=== PATIENT | male | born 1955 | race Caucasian/White ===

== ENCOUNTER 2016-06-03 11:49 | Observation (INO) | payer OTHER ==
--- NOTE | 2016-06-03 12:12 | UCPHY ---
H & P Patient Type: New Chief Complaint Nursing Narrative: states he had cold symptoms for 2 weeks and now sob x 2 days. pt very pale, skin w/d. Time Seen by Provider: 06/03/16 12:04 HPI/ROS: CHIEF COMPLAINT: Fatigue HISTORY OF PRESENT ILLNESS: The patient is a 61-year-old man who comes to the emergency department complaining of easy fatigability and shortness of breath with exertion. He is not short of breath at rest. He has not had a fever or recent illness. Has had incidents in the past of anemia for unexplained reasons. He states that about 10 years ago this happened and he was anemic and had upper and lower endoscopy and no source found. He improved with iron supplementation. It happened again a few years later and was confirmed by lab results but no advanced diagnostics. This again improved with iron supplementation. The patient began feeling this way about 3 days ago and has been taking iron since then. He has not had any blood or dark stool. No vomiting. No chest pain or palpitations . He states that his only past medical history of hypothyroid and he takes Synthroid. His dose has not changed. REVIEW OF SYSTEMS: Constitutional: denies: chills, fever, recent illness, recent injury EENTM: denies: blurred vision, double vision, nose congestion Respiratory: denies: cough, shortness of breath Cardiac: denies: chest pain, irregular heart rate, lightheadedness, palpitations Gastrointestinal/Abdominal: denies: abdominal pain, diarrhea, nausea, vomiting, blood streaked stools Genitourinary: denies: dysuria, frequency, hematuria, pain Musculoskeletal: denies: joint pain, muscle pain Skin: See HPI Neurological: denies: headache, numbness, paresthesia, tingling, dizziness, weakness Hematologic/Lymphatic: denies: blood clots, easy bleeding, easy bruising Immunologic/allergic: denies: HIV/AIDS, transplant EXAM: GENERAL: Well-appearing, well-nourished and in no acute distress. HEAD: Atraumatic, normocephalic. EYES: Pupils equal round and reactive to light, extraocular movements intact, sclera anicteric, conjunctiva are normal. ENT: Large nontender goiter equal bilaterally. TMs normal, nares patent, oropharynx clear without exudates. Moist mucous membranes. NECK: Normal range of motion, supple without lymphadenopathy or JVD. LUNGS: Breath sounds clear to auscultation bilaterally and equal. No wheezes rales or rhonchi. HEART: Regular rate and rhythm without murmurs, rubs or gallops. ABDOMEN: Soft, nontender, normoactive bowel sounds. No guarding, no rebound. No masses appreciated. BACK: No CVA tenderness, no spinal tenderness, step-offs or deformities EXTREMITIES: Normal range of motion, no pitting or edema. No clubbing or cyanosis. NEUROLOGICAL: Cranial nerves II through XII grossly intact. Normal speech, normal gait. 5/5 strength, normal movement in all extremities, normal sensation PSYCH: Normal mood, normal affect. SKIN: Pale Source: Patient Exam Limitations: No limitations - Medical/Surgical History Hx Asthma: No Hx Chronic Respiratory Disease: No Hx Diabetes: No Hx Cardiac Disease: No Hx Renal Disease: No Hx Cirrhosis: No Hx Alcoholism: No Other PMH: hypothyroid, anemia - Family History Significant Family History: No pertinent family hx - Social History Smoking Status: Former smoker Alcohol Use: Sober Drug Use: None Constitutional: Initial Vital Signs Temperature (C) 36.7 C 06/03/16 12:03 Heart Rate 95 06/03/16 12:03 Respiratory Rate 18 06/03/16 12:03 Blood Pressure 143/64 H 06/03/16 12:03 O2 Sat (%) 100 06/03/16 12:03 O2 Delivery Mode Room Air Allergies/Adverse Reactions: Penicillins Allergy (Verified 06/03/16 12:02) Home Medications: Medication Instructions Recorded Levothyroxine 06/03/16 Medical Decision Making - Diagnostics EKG Interpretation: An EKG obtained and was read and documented in trace view. Please see trace view for full reading and report. Sinus rhythm, no acute ischemic changes Imaging: X-ray: chest x-ray was obtained. I viewed the images myself on the PACS system. My interpretation of the images is: Negative for airway disease, displaced trachea. The radiologist interpretation is enlarged thyroid displacing trachea to the right. Recommend CT neck. ED Course/Re-evaluation: Patient's hematocrit is 22. I performed a rectal exam. It is grossly negative but will be sent to the lab. I will wait to order transfusion until I discussed with the hospital service. It is not available here but may be done during admission. Patient remained symptom free in bed. His prefer to drive him to the hospital. I discussed the x-ray results with him. He does have a palpable goiter but it seems equal bilaterally. He states that they have been following this and abdomen 3 biopsies and several ultrasounds but it is never been found to be cancers. He does not know if his trachea is ever been displaced before. Does not have any respiratory distress. 1:00 p.m. I discussed the case with Loreto Andino who accepted for Dr. Carty. Differential Diagnosis: Partial list of the Differential diagnosis considered include but were not limited to; anemia, PE, arrhythmia and although unlikely based on the history and physical exam, I also considered acute coronary disease, pneumonia dissection, pneumothorax. - Data Points Laboratory Results: Laboratory Results 06/03/16 12:20 06/03/16 12:20 06/03/16 06/03/16 06/03/16 12:55 12:20 12:20 WBC RBC Hgb Hct MCV MCH MCHC RDW Plt Count MPV Neut % (Auto) Lymph % (Auto) [place] % (Auto) Eos % (Auto) Baso % (Auto) Nucleat RBC Rel Count Absolute Neuts (auto) Absolute Lymphs (auto) Absolute Monos (auto) Absolute Eos (auto) Absolute Basos (auto) Absolute Nucleated RBC Immature Gran % Immature Gran # Platelet Estimate Hypochromasia Microcytic Cells Oval Macrocytes Stomatocytes Elliptocytes Schistocytes Smear Review By PT 14.0 SEC SEC (12.0-15.0) INR 1.11 (0.83-1.16) APTT 27.0 SEC SEC (23.0-38.0) D-Dimer < 0.27 ug/mLFEU ug/mLFEU (0.00-0.50) Sodium 143 mEq/L mEq/L (134-144) Potassium 3.6 mEq/L mEq/L (3.5-5.2) Chloride 105 mEq/L mEq/L (97-110) Carbon Dioxide 24 mEq/l mEq/l (22-31) Anion Gap 14 mEq/L mEq/L (8-16) BUN 16 mg/dL mg/dL (7-23) Creatinine 0.8 mg/dL mg/dL (0.7-1.3) Estimated GFR > 60 Glucose 115 mg/dL H mg/dL (70-100) Calcium 8.7 mg/dL mg/dL (8.5-10.4) Troponin I < 0.012 ng/mL ng/mL (0-0.034) NT-Pro-B Natriuret Pep 36 pg/mL pg/mL (0-125) TSH < 0.015 uIU/mL L uIU/mL (0.465-4.680) Free T4 1.38 ng/dL ng/dL (0.59-2.19) Stool Occult Bld Scrn POSITIVE H (NEGATIVE) 06/03/16 12:20 WBC 5.01 10^3/uL 10^3/uL (3.80-9.50) RBC 3.03 10^6/uL L 10^6/uL (4.40-6.38) Hgb 6.4 g/dL L g/dL (13.7-17.5) Hct 22.3 % L % (40.0-51.0) MCV 73.6 fL L fL (81.5-99.8) MCH 21.1 pg L pg (27.9-34.1) MCHC 28.7 g/dL L g/dL (32.4-36.7) RDW 18.8 % H % (11.5-15.2) Plt Count 389 10^3/uL 10^3/uL (150-400) MPV 9.7 fL fL (8.7-11.7) Neut % (Auto) 67.0 % % (39.3-74.2) Lymph % (Auto) 21.4 % % (15.0-45.0) [place] % (Auto) 7.0 % % (4.5-13.0) Eos % (Auto) 3.4 % % (0.6-7.6) Baso % (Auto) 1.0 % % (0.3-1.7) Nucleat RBC Rel Count 0.0 % % (0.0-0.2) Absolute Neuts (auto) 3.36 10^3/uL 10^3/uL (1.70-6.50) Absolute Lymphs (auto) 1.07 10^3/uL 10^3/uL (1.00-3.00) Absolute Monos (auto) 0.35 10^3/uL 10^3/uL (0.30-0.80) Absolute Eos (auto) 0.17 10^3/uL 10^3/uL (0.03-0.40) Absolute Basos (auto) 0.05 10^3/uL 10^3/uL (0.02-0.10) Absolute Nucleated RBC 0.00 10^3/uL 10^3/uL (0-0.01) Immature Gran % 0.2 % % (0.0-1.1) Immature Gran # 0.01 10^3/uL 10^3/uL (0.00-0.10) Platelet Estimate ADEQUATE (ADEQ) Hypochromasia 2+ H Microcytic Cells 1+ H Oval Macrocytes 1+ H Stomatocytes 1+ H Elliptocytes 1+ H Schistocytes 1+ H Smear Review By Pending PT INR APTT D-Dimer Sodium Potassium Chloride Carbon Dioxide Anion Gap BUN Creatinine Estimated GFR Glucose Calcium Troponin I NT-Pro-B Natriuret Pep TSH Free T4 Stool Occult Bld Scrn Departure - Departure Disposition: [facility] ([place], [place]) Inpatient Acute Clinical Impression: Goiter Anemia Qualifiers: Anemia type: unspecified type Qualified Code(s): D64.9 - Anemia, unspecified Condition: Fair - PQRS PQRS Measurement: 134: Depression screening and followup, PRIME MD-PHQ2 (12 years and older) Over the last 2 weeks, how often have you been bothered by any of the following problems? 1. Feeling down, depressed, or hopeless? 2. Little interest or pleasure in doing things? Patient answered no to both 1 and 2 130: Documentation of medications. Reviewed all patient medications, doses, route and frequency. 226: Do you smoke? No. 47: 65 and older: Advanced care planning. Patient designates surrogate decision maker as spouse . Patient has advanced directive. 51: 18 years old and older with diagnosis of COPD, spirometry performance. Spirometry not performed; equipment not available. 52: 18 years old and older with COPD and symptoms of COPD or FEV1<60% predicted prescribed a B Agonist. Not applicable
--- NOTE | 2016-06-03 12:19 | CPEKG ---
Heart Rate: 91 RR Interval: 659 P-R Interval: 140 QRSD Interval: 94 QT Interval: 380 QTC Interval: 468 P Badger: 2 QRS Badger: -43 T Wave Badger: 24 EKG Severity - OTHERWISE NORMAL ECG - EKG Impression: SINUS RHYTHM EKG Impression: LEFT AXIS DEVIATION Electronically Signed By: Marco Antonio Thompson 03-Jun-2016 12:49:03
[2016-06-03 12:28] LABS: % IMMATURE GRANULYOCYTES 0.2 % (0.0-1.1); ABSOLUTE IMMATURE GRANULOCYTES 0.01 10^3/uL (0.00-0.10); ADD DIFF? NO; ADD MORPH? YES; ADD SCAN? NO; ATYPICAL LYMPHOCYTE FLAG 0 (0-99); FRAGMENT RBC FLAG 40 (0-99); HEMATOCRIT 22.3 % (40.0-51.0); LEFT SHIFT FLG 0 (0-99); LIPEMIA HEMOLYSIS FLAG 70 (0-99); MEAN CELL HEMOGLOBIN 21.1 pg (27.9-34.1); MEAN CELL VOLUME 73.6 fL (81.5-99.8); MEAN PLATELET VOLUME 9.7 fL (8.7-11.7); PLATELET CLUMPS FLAG 0 (0-99); PLATELET COUNT 389 10^3/uL (150-400); RED BLOOD CELL COUNT 3.03 10^6/uL (4.40-6.38); RED CELL DISTRIBUTION WIDTH 18.8 % (11.5-15.2)
[2016-06-03 12:39] LABS: HEMOGLOBIN 6.4 g/dL (13.7-17.5); INR 1.11 (0.83-1.16); MEAN CELL HEMOGLOBIN CONCENTR. 28.7 g/dL (32.4-36.7)
[2016-06-03 12:41] LABS: ANION GAP 14 mEq/L (8-16); CALCIUM 8.7 mg/dL (8.5-10.4); CARBON DIOXIDE 24 mEq/l (22-31); CHLORIDE 105 mEq/L (97-110); CREATININE 0.8 mg/dL (0.7-1.3); GLOMERULAR FILTRATION RATE > 60; GLUCOSE 115 mg/dL (70-100); POTASSIUM 3.6 mEq/L (3.5-5.2); SODIUM 143 mEq/L (134-144)
[2016-06-03 12:55] LABS: TROPONIN I < 0.012 ng/mL (0-0.034)
[2016-06-03 13:06] LABS: PLATELET ESTIMATE ADEQUATE (ADEQ)
[2016-06-03 13:09] LABS: ELLIPTOCYTES 1+; HYPOCHROMIA 2+; MACROCYTES 1+; MICROCYTES 1+; SCHISTOCYTES 1+; STOMATOCYTES 1+
[2016-06-03] MEDS ORDERED: ONDANSETRON DISINTEGRATING 4 MG TAB PO PRN (15:41)
[2016-06-03] MEDS ORDERED: ONDANSETRON 4 MG/2 ML VIAL IVP PRN (15:41)
[2016-06-03] MEDS ORDERED: ACETAMINOPHEN 325 MG TAB PO PRN (15:41)
--- NOTE | 2016-06-03 16:16 | GHP ---
DATE OF ADMISSION: 06/03/2016 HISTORY OF PRESENT ILLNESS: The patient is a pleasant on 61-year-old gentleman with a history of iron deficiency anemia of uncertain etiology about 10 years ago, who presents with increasing fatigue, dyspnea on exertion, and generalized weakness. He takes oral iron. He has noticed some dark stools, but has not had any bright red blood per rectum, hematemesis, or coffee-grounds emesis. He does have a family history of colon cancer. About 10 years ago, he had an evaluation including upper and lower endoscopy and capsule endoscopy, which were all unremarkable. He does not smoke cigarettes, takes rare NSAIDs, and does not drink a lot of alcohol. REVIEW OF SYSTEMS: Complete 10-point review of systems was conducted and negative, except as noted in the HPI. PAST HISTORY: 1. Goiter. 2. Iron-deficiency anemia of uncertain cause. ALLERGIES: Penicillins from which he gets muscle. HOME MEDICATIONS: Levothyroxine. SOCIAL HISTORY: Alcohol and tobacco as in the HPI. FAMILY HISTORY: As in the HPI. PHYSICAL EXAM: VITAL SIGNS: Temp 36.7, blood pressure 143/64, pulse 95, breathing 18 times a minute, 100% on room air. GENERAL: Pale, in no acute distress. HEENT: Sclerae are anicteric. Oropharynx clear. Mucous membranes moist. NECK: Supple. No lymphadenopathy or JVD. LUNGS: Clear to auscultation bilaterally. HEART: S1, S2. There is a flow murmur noted. ABDOMEN: Soft, nontender, nondistended. LOWER EXTREMITIES: No edema. Calves nontender. SKIN: Without rash. NEUROLOGIC: Grossly nonfocal. NECK: Notable for a large goiter. LABS: White count 5, hemoglobin 6.4, hematocrit 22.3, MCV is 73.6. INR is 1.1. D-dimer less than 0.27. Chem-7 normal. Glucose 115. Troponin less than 0.012. TSH is undetectable, free T3 is 138. Fecal occult screen is positive. IMAGING: Chest x-ray interpreted by me shows a superior mediastinal mass displacing the airway, otherwise no acute cardiopulmonary disease. EKG interpreted by me shows sinus at 91 with left axis deviation. There are diffuse flat T-waves, but otherwise no ST or T-wave changes. I discussed the case with Dr. Marco Antonio Thompson. ASSESSMENT AND PLAN: A 61-year-old gentleman, who presented with symptomatic anemia. 1. Microcytic anemia. This is likely chronic blood loss. He has had a negative evaluation. Certainly, a repeat GI evaluation is warranted. At this point in time, I will type and screen the patient, send iron studies to verify, and transfuse him with 2 units of pack cells. Will also order some IV iron for the morning. 2. Iatrogenic hyperthyroidism. Patient's levothyroxine dose should be decreased. 3. Goiter. This is a chronic thing. He has no dyspnea or stridor. We can follow. 4. Prophylaxis. Pharmacologic prophylaxis is contraindicated given his severe anemia. DISPOSITION: Observation status. /[id number]/MODL MTDD
[2016-06-03 17:12] LABS: FERRITIN - BCH 5.4 ng/mL (17.9-464.0)
[2016-06-03] MEDS ORDERED: GOLYTELY 4000 ML BTL PO ONE (17:27)
[2016-06-03] MEDS: SODIUM FERRIC GLUCONAT/SUCROSE 125 MG in NS 100 ML IV SCH (20:06)
[2016-06-04 06:01] LABS: % IMMATURE GRANULYOCYTES 0.1 % (0.0-1.1); ABSOLUTE IMMATURE GRANULOCYTES 0.01 10^3/uL (0.00-0.10); ADD DIFF? NO; ADD MORPH? NO; ADD SCAN? NO; ATYPICAL LYMPHOCYTE FLAG 0 (0-99); FRAGMENT RBC FLAG 20 (0-99); HEMATOCRIT 25.6 % (40.0-51.0); LEFT SHIFT FLG 0 (0-99); LIPEMIA HEMOLYSIS FLAG 80 (0-99); MEAN CELL HEMOGLOBIN 23.3 pg (27.9-34.1); MEAN CELL HEMOGLOBIN CONCENTR. 31.3 g/dL (32.4-36.7); MEAN CELL VOLUME 74.4 fL (81.5-99.8); MEAN PLATELET VOLUME 9.7 fL (8.7-11.7); PLATELET CLUMPS FLAG 0 (0-99); PLATELET COUNT 351 10^3/uL (150-400); RED BLOOD CELL COUNT 3.44 10^6/uL (4.40-6.38); RED CELL DISTRIBUTION WIDTH 18.2 % (11.5-15.2)
[2016-06-04] MEDS ORDERED: PANTOPRAZOLE SODIUM 40 MG TAB PO PRN (09:00)
[2016-06-04] MEDS ORDERED: MULTIVITAMINS 1 EACH TAB PO SCH (09:00)
[2016-06-04] MEDS ORDERED: MIDAZOLAM 2 MG/2 ML VIAL ONE (10:34)
[2016-06-04] MEDS ORDERED: fentaNYL 100 MCG/2 ML INJ ONE (10:34)
[2016-06-04] MEDS: SODIUM FERRIC GLUCONAT/SUCROSE 125 MG in NS 100 ML IV SCH (12:15)
[2016-06-04 12:21] VITALS: BP 128/73; PULSE 85; RESP 14; TEMP 97.8; O2SAT 92
--- NOTE | 2016-06-04 12:48 | GCON ---
[f rep st] CONSULTATION GI INPATIENT CONSULTATION. DATE OF CONSULTATION: 06/04/2016 I was kindly requested to see Raúl by Dr. Sebastian Carty in consultation for a chief complaint of anemia. HISTORY OF PRESENT ILLNESS: He is a 61-year-old, white male, who has had a long history of the above. He began to have trouble with fatigue, dyspnea on exertion, and weakness. He has noted some dark stools, but had restarted iron 10 days ago. He denies bright red blood per rectum, maroon stools, hematemesis. He presented to the emergency department, where he was found to have a hematocrit of 22.3%, and was admitted to the hospital. His anemia dates back at least 10 years ago. Then, he underwent an extensive, mostly unremarkable, workup. An upper endoscopy in 2006 showed a large hiatal hernia. Colonoscopy was unremarkable. Small-bowel pill camera endoscopy and small-bowel follow-through were unremarkable. In 2011, his hematocrit was 33.7% . He was placed on iron, and his hematocrit normalized. Until recently, he has not been using iron. When he started to feel weak, he began iron 10 days ago. He is using "blue iron" in liquid form, 15 mL a day, that he purchased online via [employer]. This product has 25 mg of elemental iron. He finds this product does not cause him any nausea or GI distress. He has tried other iron products in the past, all of which have given him significant nausea, even with food. This includes iron sulfate, iron gluconate, etc. PAST MEDICAL HISTORY: 1. As above. 2. Goiter. 3. Otherwise, noncontributory. ALLERGIES: Include penicillin. MEDICATIONS: Outpatient medications include: Levothyroxine. Inpatient medications include: IV iron, Synthroid, pantoprazole. SOCIAL HISTORY: He does not smoke cigarettes. He is . His 's name is Sushma, vidal . FAMILY HISTORY: Negative for similar anemia. REVIEW OF SYSTEMS: Positive pertinent review of systems as per my HPI. Otherwise, a complete review of systems is negative. However, he has had a chronic cough for 3 weeks. He has had a chronic history of occasional dysphagia to the first bite of a meal, but then no further troubles with dysphagia. PHYSICAL EXAM: CONSTITUTIONAL: Pale, nontoxic-appearing gentleman. SKIN: Pale, dry. EYES: Pupils equal, round, react to light and accommodation. EAR, NOSE, MOUTH AND THROAT: Oropharynx without masses, moist mucosa. CARDIOVASCULAR: Normal S2, normal PMI. RESPIRATORY: Clear to auscultation and percussion anteriorly. GASTROINTESTINAL: Abdomen soft, nontender. NEUROLOGIC: Grossly nonfocal, with cranial nerves grossly intact. PSYCHIATRIC : Orientation, insight appropriate. MUSCULOSKELETAL: Strength is grossly normal throughout, normal station. LABORATORIES: Include the above. Decreased TSH, normal free T4. Stool: Hemoccult positive. Hematocrit today increased to 25.6. MCV 73.6. Normal coags. Normal basic metabolic panel. Decreased iron, ferritin. Chest x-ray shows displacement and compression of his airway, from most likely his goiter. ASSESSMENT: Anemia, chronic. Extensive, negative evaluation in the past. However, this was 10 years ago. Therefore, he should be re-evaluated. Possibilities could include an upper GI source, such as erosions in his hiatal hernia sac, AVMs, gastritis, celiac disease, etc. A colonic source, such as AVMs, colon polyp or cancer, etc. is possible. PLAN: 1. Urgent upper endoscopy, colonoscopy. We will do duodenal biopsies at the time of upper endoscopy. Certainly, with his goiter and a chest x-ray showing displacement and compression of his airway, he is at increased risk for this procedure. However, suspected benefits outweigh the risks, and suspect he will do well. 2. Further management pending the above. Thank you for allowing me to help in the care of this patient. /[id number]/MODL MTDD
--- NOTE | 2016-06-04 13:14 | GPN ---
[f rep st] PROCEDURE NOTE DATE OF PROCEDURE: 06/04/2016 GI INPATIENT PROCEDURES: Upper endoscopy with biopsy, colonoscopy with ablation. INDICATION AND PRE-PROCEDURE DIAGNOSIS: Anemia. POSTPROCEDURE DIAGNOSES: A. Upper endoscopy. 1. A large, 8 cm, hiatal hernia. One small erosion seen, at the base. 2. Otherwise, normal upper endoscopy. B. Colonoscopy. 1.. 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 2. Nayak-diverticulosis. 3. Very small internal hemorrhoids. PREMEDICATION: Fentanyl 200 mcg IV, Versed 7 mg IV. TIME: From when sedation was 1st administered until when the procedure was completed was 44 minutes. COMPLICATIONS: None. FINDINGS: After informed consent was obtained, the patient was placed in left lateral decubitus position. The upper endoscope was placed under direct visualization and advanced. The esophagus was normal. The GE junction was at 35 cm. Large hiatal hernia as above, which appeared to be a type 1. There was a very small erosion at the base of the hiatal hernia sac. No active bleeding. Rest of the stomach was normal. Duodenum normal. Biopsies done of the duodenum, to rule out a selective iron-deficiency celiac disease (doubt). The patient's gurney was then turned around. Video adult colonoscope placed in rectum, and advanced to the terminal ilium. Terminal ileum normal. In the ascending colon, approximately 10 small AVMs were seen, nonbleeding. Ablated with argon plasma coagulation, setting for right colon, approximately 20 pulses. Nayak-diverticulosis was seen. Very small internal hemorrhoids were seen. IMPRESSION: I suspect his chronic anemia is either due to some slow blood loss from the above colonic angioectasias, or possibly from his large hiatal hernia sac (large hiatal hernia sacs can sometimes rub "up and down" across the diaphragm, developing what is called Benny erosions, which can cause some chronic blood loss). At this juncture, hard to say which is responsible. Hopefully, with ablation of the above AVMs and with chronic (not intermittent) iron replacement therapy, this will resolve his problem. PLAN: 1. We will let him eat. 2. Biopsies pending. 3. Of note, chest x-ray does show that his goiter is displacing, compressing his airway. Further management of this, as well as endocrine followup, as per the hospitalist service. From a GI standpoint, okay to discharge home. Upon discharge, I would recommend : a) continuing his "Blue Iron" liquid product that he buys from [employer]. However, instead of the recommended 15 mL daily, would recommend 30 mL per day ( this would equal 50 mg of elemental iron, which is close to what iron sulfate would provide), b) followup with his PCP, with periodic H and Hs to make sure his hematocrit increases appropriately, and stays normal. If, despite continuous iron replacement therapy, his hematocrit was to decrease again in the future, please then resend the pt. to see us. At that point, we most likely would repeat his small-bowel pill camera endoscopy. If that is unremarkable, he might require surgery for his large hiatal hernia sac (at this juncture, would not recommend surgery, as he otherwise does not get much in the way of symptoms from this hiatal hernia). I will sign off. I will follow up on his biopsy results, but suspect will be unremarkable. Otherwise, please let me know if I can be of further help in the future. Copy requested to: Dr. Solano, transformer maker Nitish, JAYJAY /[id number]/MODL MTDD
--- NOTE | 2016-06-04 14:43 | PDDCSUM ---
Discharge Summary Discharge Summary: DISCHARGE SUMMARY FOLLOW-UP ITEMS: 1. Hemoglobin and hematocrit on 06/09/[address] with IV contrast of the neck and chest to evaluate mediastinal mass DATE OF ADMISSION: 06/03/2016 DATE OF DISCHARGE: 06/04/2016 DISCHARGE DIAGNOSES: 1. Large hiatal hernia with small erosion 2. 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 Iron deficient anemia 4. Mediastinal mass CONSULTATIONS: Gastroenterology by Dr. Beckford PROCEDURES / IMAGING: Upper endoscopy and colonoscopy by Dr. Beckford demonstrating small internal hemorrhoids, pandiverticulosis, small AVMs in the ascending colon, 8 cm hiatal hernia with small erosions CHIEF COMPLAINT: Generalized weakness SUBJECTIVE: Patient is feeling well at time of discharge, he denies any shortness of breath PHYSICAL EXAM ON DISCHARGE: Systolic blood pressure is 120, heart rate in the 90s, afebrile overnight, satting well on room air, respirations are clear to auscultation bilaterally without any inspiratory wheezes LABS ON DISCHARGE: Hemoglobin is 8, MCV 74, creatinine 0.8, TSH undetectable, fecal occult blood positive, iron level 12, ferritin level 5.4, D-dimer negative HOSPITAL COURSE BY PROBLEM: 1. Large hiatal hernia. Patient has a large hiatal hernia and this may be causing small erosions which could be responsible for some element of chronic blood loss. He did not have any evidence of active bleeding, and we recommend ongoing use of regular PPI. He may require surgical repair in the future, but would recommend conservative management at the present time of his anemia. 2. Small arterial venous malformations in the ascending colon. Patient also has evidence of AVMs which could be responsible for another component of his chronic blood loss. These were ablated on colonoscopy and there was no evidence of active bleeding thereafter. 3. Iron deficient anemia. Patient has iron deficient anemia causing his symptoms of generalized weakness, with a low MCV and hemoglobin level of 6.4. Patient received blood transfusion and IV iron. It was recommended that he continue taking his [id number] iron supplement but doubling his home dosage. He should have a follow-up hemoglobin and hematocrit next week at his primary care provider's office. Should receive ongoing H&H monitoring if he has progressive decline in his values, then he can be referred back to Dr. Beckford and GI of the [facility] for possible capsule endoscopy. 4. Mediastinal mass. Patient has evidence of mediastinal mass on chest x-ray and a known history of goiter. His TSH is undetectable and his free T4 is within the normal range. He reports that he has had numerous negative biopsies of this goiter in the past. He has also had ultrasounds but no formal chest CT imaging. I recommended a CT of the neck and chest with IV contrast and follow- up resulted Dr. Hutchins office. He has also been referred to a local stereotyper helper. DISCHARGE MEDICATIONS: Please see official discharge medication reconciliation sheet in chart , increase is [id number] iron supplement, continue PPI DISCHARGE INSTRUCTIONS: Follow up with PCP next Thursday, stereotyper helper thereafter.
[2016-06-05] MEDS ORDERED: LEVOTHYROXINE 25 MCG TAB PO SCH (06:00)
== END 2016-06-04 15:32 | disposition home or self-care (01) ==
LOC: CED 11:49 → CEDHOLD 13:01 → F2N 15:20 → F3E 06-04 12:13
PROVIDERS: ADMIT Internal Medicine; ATTEND Internal Medicine
DX: D50.0 Iron deficiency anemia secondary to blood loss (chronic) (principal); Q27.33 Arteriovenous malformation of digestive system vessel; K44.9 Diaphragmatic hernia without obstruction or gangrene; K25.9 Gastric ulcer, unspecified as acute or chronic, without hemorrhage or perforation; K57.30 Diverticulosis of large intestine without perforation or abscess without bleeding; K64.8 Other hemorrhoids; E04.9 Nontoxic goiter, unspecified; R22.2 Localized swelling, mass and lump, trunk
CPT/HCPCS: 43239; 45388; 71020; 93005; 99203; G0378; P9016; 80048-PO; 82270-PO; 83880-PO; 84439-PO; 84443-PO; 84484-PO; 85025-PO; 85378-PO; 85610-PO; 85730-PO; 93010-PO; 99205-PO; G0463-PO; J2250; J2916; J3010

== ENCOUNTER 2016-06-05 19:31 | Emergency (ER) | payer OTHER ==
[2016-06-05 20:00] VITALS: BP 132/53; PULSE 80; RESP 16; TEMP 97.9; O2SAT 96
[2016-06-05] MEDS ORDERED: ASPIRIN 325 MG TAB PO ONE (20:45)
[2016-06-05] MEDS ORDERED: DOXYCYCLINE 100 MG PREPACK#2 BTL TAKEHOME ONE (20:46)
--- NOTE | 2016-06-05 20:49 | UCPHY ---
H & P Time Seen by Provider: 06/05/16 20:30 Patient Type: Established HPI/ROS: This patient has swelling mild discomfort and redness at the right antecubital fossa-site of his peripheral IV that was placed here 2 days ago for admission for idiopathic anemia. He was admitted to [facility] and discharged after 24 hours hours after transfusion. He reports marked improvement in his symptoms that initially brought him in but onset today of the right arm discomfort and symptoms listed above. He has never had this problem before. He has no other associated symptoms. Reports the discomfort is to 3/10 with mild burning discomfort in the redness just started this evening. ROS: No fevers chills or other constitutional symptoms. Neuro: No numbness or tingling the affected arm. Cardiovascular: No pallor to the affected arm. No deep ache in the arm. GI: No vomiting. Cardiovascular: No lightheadedness. 7 point ROS is otherwise negative. Past Medical/Surgical History: Idiopathic anemia. Smoking Status: Former smoker Physical Exam: Physical Exam Vital signs are normal. General: No acute distress Eyes: Pupils equal and react to light. Extraocular motions are intact. Lungs: No respiratory distress. Cardiac: Brisk capillary refill is intact throughout. Pulses are 2+ and symmetric in the affected extremity. Skin: Right antecubital fossas exam is notable for puncture wound consistent with recent peripheral IV surrounded by mild blotchy erythema extending 5 cm below and 8 cm above the IV site with a cord that is palpable and mild tenderness. No fluctuance. No purulent discharge. Neuro: Alert and oriented x3 with no sensorimotor deficits. Initial differential diagnosis: Superficial thrombophlebitis, early cellulitis Constitutional: Initial Vital Signs Temperature (C) 36.6 C 06/05/16 19:58 Heart Rate 80 06/05/16 19:58 Respiratory Rate 16 06/05/16 19:58 Blood Pressure 132/53 H 06/05/16 19:58 O2 Sat (%) 96 06/05/16 19:58 O2 Delivery Mode Room Air Allergies/Adverse Reactions: Penicillins Allergy (Verified 06/05/16 19:57) Home Medications: Medication Instructions Recorded Herbals/Supplements -Info Only 1 ea PO DAILY 06/03/16 Levothyroxine [Synthroid 25 mcg 12.5 mcg PO Q48H 06/03/16 (*)] Multivitamins [Multivitamin (*)] 1 each PO DAILY 06/03/16 Omeprazole [Prilosec 20 mg] 20 mg PO DAILY PRN 06/03/16 Doxycycline Hyclate [Vibramycin 100 mg PO BID #12 cap 06/05/16 100 MG (*)] MDM/Departure - MDM Medications Given: Discontinued Medications Aspirin (Aspirin) 325 mg PO EDNOW ONE Stop: 06/05/16 20:46 Last Admin: 06/05/16 20:56 Dose: 325 mg Doxycycline Hyclate (Vibramycin 100 Mg Prepack#2) 1 btl TAKEHOME EDNOW ONE Stop: 06/05/16 20:47 Last Admin: 06/05/16 20:56 Dose: 1 btl ED Course/Re-evaluation: This patient appears clinically well with exception of the isolated findings the right arm. No concerns for sepsis or deep tissue infection. Aspirin p. o. Doxycycline p. o. I counseled regarding superficial thrombophlebitis and localized cellulitis. - Depart Disposition: Home, Routine, Self-Care Clinical Impression: Cellulitis of arm, right Superficial thrombophlebitis of arm Qualifiers: Laterality: right Qualified Code(s): I80.8 - Phlebitis and thrombophlebitis of other sites Condition: Good Instructions: Doxycycline (By mouth), Superficial Thrombophlebitis (ED) Additional Instructions: Diagnosis: 1. Superficial thrombophlebitis 2. Mild arm cellulitis Plan: Aspirin-324 mg a day Warm packs applied arm Doxycycline antibiotic Yogurt or probiotic while on this to prevent diarrhea Wear sunscreen while outside while on this medication as it will make you more prone to sunburn. Return for any significant worsening despite the treatment plan Prescriptions: Doxycycline Hyclate [Vibramycin 100 MG (*)] 100 mg PO BID #12 cap Referrals: NONE *PRIMARY CARE P,. [Primary Care Provider] - As per Instructions - PQRS PQRS Measurement: 134: Depression screening and followup, PRIME MD-PHQ2 (12 years and older) Over the last 2 weeks, how often have you been bothered by any of the following problems? 1. Feeling down, depressed, or hopeless? 2. Little interest or pleasure in doing things? Patient answered no to both 1 and 2 130: Documentation of medications. Reviewed all patient medications, doses, route and frequency. 226: Do you smoke? [No.] 47: 65 and older: Advanced care planning. Patient designates surrogate decision maker as spouse 51: 18 years old and older with diagnosis of COPD, spirometry performance. NA 52: 18 years old and older with COPD and symptoms of COPD or FEV1<60% predicted prescribed a B Agonist. NA
== END 2016-06-05 21:22 | disposition home or self-care (01) ==
LOC: CED 19:31
DX: I80.8 Phlebitis and thrombophlebitis of other sites (principal); Z87.891 Personal history of nicotine dependence
CPT/HCPCS: 99214-PO; G0463-PO

== ENCOUNTER → 2016-07-08 | Outpatient (CLI) | payer OTHER ==
[~2016-07-08] MED LIST: IOPAMIDOL (ISOVUE-300) 100 ML BTL IV ONE
== END ==
LOC: CIMAGING 14:23
PROVIDERS: ATTEND Family Medicine
DX: E04.9 Nontoxic goiter, unspecified (principal); K44.9 Diaphragmatic hernia without obstruction or gangrene; K76.89 Other specified diseases of liver; R05 Cough
CPT/HCPCS: 71260-PO; Q9967

== ENCOUNTER 2016-07-22 12:04 | Observation (INO) | payer OTHER ==
[2016-07-22] MEDS ORDERED: BUPIVACAINE/EPI 0.5% 30 ML SDV ONE (12:22)
[2016-07-22] MEDS ORDERED: LR 1,000 ML IV ONE (12:30)
[2016-07-22] MEDS ORDERED: LIDOCAINE 1% 5 ML SDV ID PRN (12:30)
[2016-07-22 12:41] LABS: % IMMATURE GRANULYOCYTES 0.2 % (0.0-1.1); ABSOLUTE IMMATURE GRANULOCYTES 0.01 10^3/uL (0.00-0.10); ADD DIFF? NO; ADD MORPH? YES; ADD SCAN? NO; ATYPICAL LYMPHOCYTE FLAG 0 (0-99); FRAGMENT RBC FLAG 40 (0-99); HEMATOCRIT 40.8 % (40.0-51.0); HEMOGLOBIN 12.5 g/dL (13.7-17.5); LEFT SHIFT FLG 10 (0-99); LIPEMIA HEMOLYSIS FLAG 80 (0-99); MEAN CELL HEMOGLOBIN 25.7 pg (27.9-34.1); MEAN CELL HEMOGLOBIN CONCENTR. 30.6 g/dL (32.4-36.7); MEAN PLATELET VOLUME 10.3 fL (8.7-11.7); PLATELET CLUMPS FLAG 0 (0-99); PLATELET COUNT 267 10^3/uL (150-400); RED BLOOD CELL COUNT 4.86 10^6/uL (4.40-6.38)
[2016-07-22 12:42] LABS: RED CELL DISTRIBUTION WIDTH 23.6 % (11.5-15.2)
[2016-07-22] MEDS ORDERED: MIDAZOLAM 2 MG/2 ML VIAL ONE (12:59)
[2016-07-22] MEDS ORDERED: LIDOCAINE 2% 100 MG/5 ML SYR ONE (13:09)
[2016-07-22] MEDS ORDERED: PROPOFOL/EMULSION 500 MG/50 ML BOTTLE IV ONE (13:09)
[2016-07-22] MEDS ORDERED: REMIFENTANIL HCL 1 MG VIAL ONE (13:09)
[2016-07-22] MEDS ORDERED: fentaNYL 100 MCG/2 ML INJ ONE (13:11)
[2016-07-22] MEDS ORDERED: epHEDrine SULFATE 10 MG/ML SYR ONE ×2 (13:21)
[2016-07-22 13:23] LABS: PLATELET ESTIMATE ADEQUATE (ADEQ)
[2016-07-22 13:24] LABS: ELLIPTOCYTES 1+; HYPOCHROMIA 1+; MICROCYTES 1+
[2016-07-22] MEDS ORDERED: PHENYLEPHRINE HCL 100 MCG/ML SYR ONE (13:27)
[2016-07-22] MEDS ORDERED: KETOROLAC 30 MG/1 ML SDV ONE (13:46)
[2016-07-22] MEDS ORDERED: ONDANSETRON 4 MG/2 ML VIAL ONE (13:46)
[2016-07-22] MEDS ORDERED: DEXAMETHASONE 4 MG/ML VIAL ONE ×2 (13:46)
[2016-07-22] MEDS ORDERED: VASOPRESSIN 20 UNIT/ML VIAL ONE (14:24)
[2016-07-22] MEDS ORDERED: ONDANSETRON 4 MG/2 ML VIAL IVP PRN (15:34)
[2016-07-22] MEDS ORDERED: ACETAMINOPHEN 325 MG TAB PO PRN (15:34)
[2016-07-22] MEDS ORDERED: HYDROCODONE/APAP 5/325 TAB PO PRN (15:34)
--- NOTE | 2016-07-22 15:34 | POSTOPPROG ---
Post Op Note Date of Operation: 07/22/16 Surgeon: Venancio Monique Cannoneer: Bhavin Benson Anesthesiologist: Valdo Anesthesia: GET(General Endotracheal) Pre-op Diagnosis: Substernal Thyroid Post-op Diagnosis: Same Procedure: Total thyroidectomy Findings: multinodular goiter extending behind aortic arch Inf/Abcess present in the surg proc area at time of surgery?: No EBL: Minimal Complications: no immediate Specimen(s): thyroid
[2016-07-22] MEDS: KETOROLAC 15 MG/1 ML SDV IVP SCH (18:15)
[2016-07-22] MEDS ORDERED: NS 1,000 ML IV ONE (21:00)
[2016-07-23] MEDS: KETOROLAC 15 MG/1 ML SDV IVP SCH ×2 (00:10→06:30)
[2016-07-23 03:51] VITALS: RESP 14
--- NOTE | 2016-07-23 05:38 | GOP ---
[f rep st] OPERATIVE REPORT DATE OF OPERATION: 07/22/2016 SURGEON: Venancio Monique MD HAND GLUER AND SLICER: Bhvain Benson MD. ANESTHESIA: General, Dr. Lyle. PREOPERATIVE DIAGNOSIS: Substernal thyroid goiter. POSTOPERATIVE DIAGNOSIS: Substernal thyroid goiter. PROCEDURE PERFORMED: Total thyroidectomy with excision of substernal goiter. FINDINGS: INDICATIONS: A 61-year-old male with a progressive, enlarging multinodular goiter with substernal e xtension and posterior to the aortic arch. Given the progressive increase in size and tracheal henrik ation, he is undergoing a surgical excision at this time. Risks and benefits were explained of blee ding, infection, differential diagnoses, recurrent laryngeal nerve injury, hypoparathyroidism, perma nent hypothyroidism, recurrent disease, as well as a role for a sternal split. All questions were e ntertained. He desires to proceed. DESCRIPTION OF PROCEDURE: After general anesthesia was induced, the neck was preinjected with 0.5% Marcaine with epinephrine. A large low collar incision was created. The platysma muscle was divide d over the large protruding multinodular goiter. Subplatysmal skin flaps were created to the level of the cricothyroid membrane, clavicles, as well as the sternocleidomastoid musculature. These midl ine strap muscles were along the raphe. The right raven neck cavity was initially unroofed . There was extremely a large multinodular goiter extending from above the cricothyroid membrane to just beneath the clavicles using blunt dissection. The nodule was then dissected away from the car otid sheath. The middle thyroid vein was divided with the ultrasonic dissector. The recurrent kendall ngeal nerve was easily identified, coursing into the cricothyroid muscle. The lower pole parathyroi d gland was easily identified and off the gland maintaining vascularity at all points. Th e upper pole parathyroid gland was not definitively visualized. The gland was peeled from a lateral to medial. The upper and lower pole vascular pedicles were circumferentially encompassed and divid ed with the ultrasonic dissector and the specimen taken across the thyroid isthmus. Of note, there was no suspicious lateral neck cervical adenopathy or Delphian lymphadenopathy. The contralateral n antony was subsequently explored. Similar dissection was undertaken. The multilobulated gland had mul tiple extensions from the level of the cricothyroid membrane, with this extension coursing all the w ay down posterior to the aortic arch. The middle thyroid vein was easily identified and transected with the ultrasonic dissector. The recurrent laryngeal nerve was easily identified, coursing the cr icothyroid muscle, maintaining this intact at all times. The gland was peeled from lateral to media l. A suspect normal-appearing left lower pole parathyroid gland was identified and preserved. Agai n, the upper pole gland was not definitively visualized given the massively distorted neck anatomy. The upper and lower pole vascular pedicles were divided with the ultrasonic dissector and the subst ernal component was able to be bluntly manipulated out of the mediastinum without difficulty. The g land was removed from the neck intact and sent for permanent processing. The hemostasis was assured throughout bilateral raven-neck cavities. Bilateral recurrent laryngeal nerves were confirmed intac t. Bilateral lower pole parathyroid glands were identified and confirmed viable. The neck was clos ed in layers with absorbable by Dermabond. A drain was not utilized and the trachea medialized nice ly prior to neck closure. Monocryl was utilized for skin closure followed by Dermabond. The patien t was extubated in the operating room uneventfully and taken to recovery in good condition with inta ct airway and a strong voice. /[id number]/MODL
[2016-07-23] MEDS ORDERED: LEVOTHYROXINE 150 MCG TAB PO SCH (06:00)
[2016-07-23 07:52] VITALS: BP 117/62; PULSE 92; TEMP 98; O2SAT 92
--- NOTE | 2016-07-23 08:29 | SOAPPROG ---
SOAP Progress Note Assessment/Plan: Assessment: POD 1 s/p total thyroidectomy with excision of substernal goiter. Good night. Minimal pain. Notes numbness along chin, cheek and tip of tongue. No trouble swallowing or compressive symptoms. Appetite good. afeb, VSS, A&O x 3, neck incision clean, dry and intact. Calcium 8.7. Plan: d/c home today. Plan: 07/23/16 08:28 07/23/16 08:29 07/23/16 08:31 Objective: Vital Signs Temp Pulse Resp BP Pulse Ox 36.6 C 92 14 117/62 92 07/23/16 07:51 07/23/16 07:51 07/23/16 07:51 07/23/16 07:51 07/23/16 07:51 Laboratory Results 07/22/16 12:31 07/22/16 07/23/16 07/24/16 05:59 05:59 05:59 Intake Total 3580 Output Total 850 300 Balance 2730 -300 ICD10 Worksheet Patient Problems: Problems Problem Status Onset Anemia Acute Goiter Acute
[2016-07-23] MEDS ORDERED: PANTOPRAZOLE SODIUM 40 MG TAB PO PRN (09:00)
[2016-07-23] MEDS: FERROUS SULFATE 325 MG TAB PO SCH ×2 (09:20→09:26)
== END 2016-07-23 12:00 | disposition home or self-care (01) ==
LOC: F3N 12:04 → INTOOBSV 12:04 → F3E 16:45
PROVIDERS: ADMIT Surgery; ATTEND Surgery
PROC: 0GTK0ZZ Resection of Thyroid Gland, Open Approach (ICD-10-PCS; principal; 2016-07-22 13:30)
DX: E04.2 Nontoxic multinodular goiter (principal); K44.9 Diaphragmatic hernia without obstruction or gangrene; D50.0 Iron deficiency anemia secondary to blood loss (chronic); E03.9 Hypothyroidism, unspecified; R22.2 Localized swelling, mass and lump, trunk; E78.5 Hyperlipidemia, unspecified; K21.9 Gastro-esophageal reflux disease without esophagitis
CPT/HCPCS: 60270; G0378; J1100; J1885; J2001; J2250; J2370; J2405; J2704; J3010

== ENCOUNTER → 2016-09-08 | Outpatient (CLI) | payer OTHER | LOC: FIMAGING 09:39 | PROVIDERS: ATTEND Surgery | DX: K44.9 Diaphragmatic hernia without obstruction or gangrene (principal); K21.0 Gastro-esophageal reflux disease with esophagitis; K57.10 Diverticulosis of small intestine without perforation or abscess without bleeding ==

== ENCOUNTER 2016-09-23 10:53 | Observation (INO) | payer OTHER ==
--- NOTE | 2016-09-23 11:02 | PDHPUP ---
History & Physical Update H&P update statement: This history and physical update is based on an assessment of the patient which was completed after admission or registration (within 24 hours), but prior to the surgery/procedure. H&P update: H&P reviewed & patient examined, no change in patient's condition since H&P completed
[2016-09-23] MEDS ORDERED: ceFAZolin 2 GM/DEXTROSE 100 ML IV ONE (11:24)
[2016-09-23] MEDS ORDERED: MIDAZOLAM 2 MG/2 ML VIAL IVP ONE (11:31)
--- NOTE | 2016-09-23 11:33 | PDANEPAE ---
ANE History of Present Illness 61 year old with hiatal hernia ANE Past Medical History - Cardiovascular History Hx Hypertension: No Hx Arrhythmias: No Hx Chest Pain: No Hx Coronary Artery / Peripheral Vascular Disease: No Hx CHF / Valvular Disease: No Hx Palpitations: No - Pulmonary History Hx COPD: No Hx Asthma/Reactive Airway Disease: No Hx Recent Upper Respiratory Infection: No Hx Oxygen in Use at Home: No - Neurologic History Hx Cerebrovascular Accident: No Hx Seizures: No Hx Dementia: No - Endocrine History Hx Diabetes: No - Renal History Hx Renal Disorders: No - Liver History Hx Hepatic Disorders: No - Neurological & Psychiatric Hx Hx Neurological and Psychiatric Disorders: No - Cancer History Hx Cancer: No - Congenital Disorder History Hx Congenital Disorders: No - GI History Hx Gastrointestinal Disorders: Yes - Chronic Pain History Chronic Pain: No ANE Review of Systems - Exercise capacity METS (RN): 4 METS ANE Patient History - Allergies Allergies/Adverse Reactions: Penicillins Allergy (Mild, Verified 09/23/16 11:37) erythromycin base Allergy (Verified 08/29/16 10:29) - Home Medications Home Medications: Omeprazole [Prilosec 20 mg] 20 mg PO DAILY PRN 06/03/16 [Last Taken 09/22/16] Ferrous Sulfate [Ferrous Sulf 325 MG (*)] 325 mg PO DAILY 07/15/16 [Last Taken 09/21/16] Levothyroxine [Synthroid 137 mcg (*)] 137 mcg PO DAILY AT 6AM 09/23/16 [Last Taken 09/23/16 03:00] - NPO status NPO Since - Liquids (Date): 09/23/16 NPO Since - Liquids (Time): 03:00 NPO Since - Solids (Date): 09/22/16 NPO Since - Solids (Time): 23:55 - Anes Hx Anes Hx: no prior problems - Smoking Hx Smoking Status: Former smoker - Family Anes Hx Family Hx Anesthesia Complications: NEG ANE Labs/Vital Signs - Vital Signs Height: 177.8 cm Weight: 95.254 kg ANE Physical Exam - Airway Neck exam: FROM Mallampati Score: Class 1 Mouth exam: normal dental/mouth exam - Pulmonary Pulmonary: clear to auscultation - Cardiovascular Cardiovascular: regular rate and rhythym - ASA Status ASA Status: II ANE Anesthesia Plan Anesthesia Plan: general endotracheal anesthesia
[2016-09-23] MEDS ORDERED: LR 1,000 ML IV ONE (11:37)
[2016-09-23] MEDS ORDERED: fentaNYL 250 MCG/5 ML INJ ONE (12:17)
[2016-09-23] MEDS ORDERED: PROPOFOL 200 MG/20 ML VIAL ONE (12:17)
[2016-09-23] MEDS ORDERED: ROCURONIUM 50 MG/5 ML VIAL ONE (12:18)
[2016-09-23] MEDS ORDERED: PROMETHAZINE HCL 25 MG/ML INJ IVP PRN (14:37)
[2016-09-23] MEDS ORDERED: ONDANSETRON 4 MG/2 ML VIAL IVP PRN ×2 (14:37→15:31)
[2016-09-23] MEDS ORDERED: NALOXONE HCL 0.4 MG/ML INJ IVP PRN (14:37)
[2016-09-23] MEDS ORDERED: fentaNYL 100 MCG/2 ML INJ ONE ×2 (15:05→15:42)
[2016-09-23] MEDS: fentaNYL 100 MCG/2 ML INJ IVP PRN ×5 (15:08→16:02)
[2016-09-23] MEDS ORDERED: HYDROmorphONE/DILAUDID 1 MG/ML SYR IVP PRN (15:31)
[2016-09-23] MEDS ORDERED: ZOLPIDEM TARTRATE 5 MG TAB PO PRN (15:31)
--- NOTE | 2016-09-23 15:35 | POSTOPPROG ---
Post Op Note Date of Operation: 09/23/16 Surgeon: Venancio Monique Electronic Musical Instrument Repairer: Bhavin Benson Anesthesiologist: Warm Anesthesia: GET(General Endotracheal) Pre-op Diagnosis: PE Hernia - symptomatic Post-op Diagnosis: Same Procedure: Lap PEH repair with Regi fundoplication Findings: large stomach in chest with GEJ relatively preserved Inf/Abcess present in the surg proc area at time of surgery?: No EBL: Minimal Complications: no immediate
[2016-09-23] MEDS ORDERED: NS 1,000 ML IV SCH (15:45)
[2016-09-23] MEDS: METOCLOPRAMIDE 10 MG/2 ML VIAL IVP SCH (17:18)
[2016-09-23] MEDS: KETOROLAC 15 MG/1 ML SDV IVP SCH (17:24)
[2016-09-24] MEDS: KETOROLAC 15 MG/1 ML SDV IVP SCH ×2 (00:23→05:37)
[2016-09-24] MEDS: METOCLOPRAMIDE 10 MG/2 ML VIAL IVP SCH ×2 (00:23→05:37)
--- NOTE | 2016-09-24 05:39 | GOP ---
[f rep st] OPERATIVE REPORT DATE OF OPERATION: 09/23/2016 SURGEON: Venancio Monique MD FITTER PLACER: Bhavin Benson MD. ANESTHESIA: General. ANESTHESIOLOGIST: Giovany Linn MD. PREOPERATIVE DIAGNOSIS: Symptomatic paraesophageal hernia. POSTOPERATIVE DIAGNOSIS: Symptomatic paraesophageal hernia. PROCEDURE PERFORMED: Laparoscopic repair of paraesophageal hernia with Regi fundoplication. FINDINGS: INDICATIONS: A 61-year-old male with a symptomatic paraesophageal hernia as evidenced by intermitte nt obstruction and recurrent upper GI bleeding. He is undergoing a surgical repair at this time. R isks and benefits were explained of bleeding, infection, open conversion, nerve injury, bowel injury , recurrence, gas bloat syndrome, postoperative dysphagia, as well as others. He is also aware that he may still have intermittent episodes of a breakthrough reflux. All questions were answered. He desires to proceed. DESCRIPTION OF PROCEDURE: After general anesthesia was induced, the abdomen was preinjected with 0. 5% Marcaine with epinephrine. A supraumbilical Veress needle was placed, followed by [address] acement. Four additional 5 mm ports were placed along the upper abdomen. A liver retractor was hoa lied allowing for exposure of the esophageal hiatus. The upper 3/4 of the stomach was noted to be i ncarcerated up within the chest. The stomach was able to be reduced back toward the abdominal cavit y. The hernia sac was circumferentially divided using an ultrasonic dissector, allowing for the sto mach to be maintained within the abdominal cavity. The GE junction was relatively preserved just at the GE junction with further mediastinal dissection. This was able to be brought down into the abd ominal cavity for approximately 4 cm. The diaphragm was noted to be of good quality. Three sutures were placed, 2 posterior and 1 anteriorly, along for excellent closure of the esophageal hiatus wit h good esophageal mobility radially. The fundus of the stomach was able to be wrapped posterior to the esophagus easily. No short gastric vessels needed to be dissected for this to occur. A 360 deg ree wrap was created with 3 interrupted Ethibond sutures incorporating the esophagus into the closur e. A completely floppy wrap was easily obtained allowing for clamps to be passed beneath the wrap w ithout any undue tension whatsoever. Satisfactory hemostasis was assured throughout all surgical si obey. Again, the diaphragms noted to be nicely closed with good esophageal mobility being allowed. The wrap was noted to be completely floppy and hemostatic with normal viability throughout all visua lized portions of the stomach. Trocars were removed under direct visualization. The wounds were cl osed with Monocryl and Dermabond. The patient was extubated and taken to recovery uneventfully. /[id number]/MODL
[2016-09-24] MEDS ORDERED: LEVOTHYROXINE 137 MCG TAB PO SCH (06:00)
[2016-09-24 07:11] VITALS: RESP 16
[2016-09-24 07:20] VITALS: BP 105/61; PULSE 55; TEMP 97.6; O2SAT 95
--- NOTE | 2016-09-24 08:27 | SOAPPROG ---
SOAP Progress Note Assessment/Plan: Assessment:no overnight complaints. min pain. no nausea. swallowing well. avss. comfortable. abd soft, approp dist. incis clean. s/p lap PEH. doing great. soft diet. resume home meds. home today. Plan: 09/24/16 08:27 Objective: Vital Signs Temp Pulse Resp BP Pulse Ox 36.4 C 55 L 16 105/61 95 09/24/16 07:18 09/24/16 07:18 09/24/16 07:18 09/24/16 07:18 09/24/16 07:18 09/23/16 09/24/16 09/25/16 05:59 05:59 05:59 Intake Total 1810 Output Total 430 Balance 1380 ICD10 Worksheet Patient Problems: Problems Problem Status Onset Anemia Acute Goiter Acute
[2016-09-24] MEDS ORDERED: FERROUS SULFATE 325 MG TAB PO SCH (09:00)
[2016-09-24] MEDS ORDERED: PANTOPRAZOLE SODIUM 40 MG TAB PO PRN (09:00)
== END 2016-09-24 09:48 | disposition home or self-care (01) ==
LOC: PREINTOOBSV 10:53 → F3E 11:05
PROVIDERS: ADMIT Surgery; ATTEND Surgery
DX: K44.9 Diaphragmatic hernia without obstruction or gangrene (principal)
CPT/HCPCS: 43281; G0378; J0690; J1885; J2250; J2704; J2765; J3010

== ENCOUNTER → 2016-10-31 | Outpatient (CLI) | payer OTHER | LOC: FIMAGING 08:15 | PROVIDERS: ATTEND Surgery | DX: K22.2 Esophageal obstruction (principal); Z98.890 Other specified postprocedural states ==

== ENCOUNTER 2016-12-02 09:10 | Day surgery (SDC) | payer OTHER ==
[2016-12-02] MEDS ORDERED: LIDOCAINE 1% 2 ML INJ ID PRN (09:22)
[2016-12-02] MEDS ORDERED: LR 1,000 ML IV ONE (09:22)
[2016-12-02 09:37] VITALS: PULSE 64
[2016-12-02] MEDS ORDERED: MIDAZOLAM 2 MG/2 ML VIAL IVP ONE (11:06)
--- NOTE | 2016-12-02 11:06 | PDANEPAE ---
ANE History of Present Illness EGD dilation ANE Past Medical History - Cardiovascular History Hx Hypertension: No Hx Arrhythmias: No Hx Chest Pain: No Hx Coronary Artery / Peripheral Vascular Disease: No Hx CHF / Valvular Disease: No Hx Palpitations: No - Pulmonary History Hx COPD: No Hx Asthma/Reactive Airway Disease: No Hx Recent Upper Respiratory Infection: No Hx Oxygen in Use at Home: No Hx Sleep Apnea: No Sleep Apnea Screening Result - Last Documented: Negative - Neurologic History Hx Cerebrovascular Accident: No Hx Seizures: No Hx Dementia: No - Endocrine History Hx Diabetes: No Hypothyroid: Yes Hyperthyroid: No Obesity: mild Endocrine History Comment: HYPOTHYROID - Renal History Hx Renal Disorders: No - Liver History Hx Hepatic Disorders: No - Neurological & Psychiatric Hx Hx Neurological and Psychiatric Disorders: No - Cancer History Hx Cancer: No - Congenital Disorder History Hx Congenital Disorders: No - GI History GERD: mild Hx Gastrointestinal Disorders: Yes Gastrointestinal History Comment: GERD. PARAESOPHAGEAL HERNIA - Other Health History Other Health History: ANEMIA - Chronic Pain History Chronic Pain: No - Surgical History Prior Surgeries: APPENDECTOMY, THYROIDECTOMY,HIATEL HERNIA REPAIR 2017 ANE Review of Systems - Exercise capacity METS (RN): 4 METS ANE Patient History - Allergies Allergies/Adverse Reactions: Penicillins Allergy (Mild, Verified 09/23/16 11:37) erythromycin base Allergy (Verified 08/29/16 10:29) - Home Medications Home Medications: Omeprazole [Prilosec 20 mg] 06/03/16 [Last Taken 12/01/16] Herbals/Supplements -Info Only 09/23/16 [Last Taken Unknown] Levothyroxine [Synthroid 137 mcg (*)] 09/23/16 [Last Taken 12/02/16] Ferrous Sulfate [Ferrous Sulf 325 MG (*)] 11/27/16 [Last Taken 12/01/16] - NPO status NPO Since - Liquids (Date): 12/02/16 NPO Since - Liquids (Time): 07:30 NPO Since - Solids (Date): 12/01/16 NPO Since - Solids (Time): 23:55 - Anes Hx Anes Hx: no prior problems - Smoking Hx Smoking Status: Never smoked Marijuana use: No - Alcohol Use Alcohol Use: Rarely - Family Anes Hx Family Anes Hx: none Family Hx Anesthesia Complications: NEG ANE Labs/Vital Signs - Vital Signs Blood Pressure: 129/86 Heart Rate: 64 Respiratory Rate: 16 O2 Sat (%): 94 Height: 177.8 cm Weight: 95.254 kg ANE Physical Exam - Airway Neck exam: FROM Mallampati Score: Class 2 Mouth exam: normal dental/mouth exam - Pulmonary Pulmonary: no respiratory distress - Cardiovascular Cardiovascular: regular rate and rhythym - ASA Status ASA Status: II ANE Anesthesia Plan Anesthesia Plan: GA with mask
[2016-12-02] MEDS ORDERED: MIDAZOLAM 2 MG/2 ML VIAL ONE (11:08)
[2016-12-02] MEDS ORDERED: PROPOFOL/EMULSION 500 MG/50 ML BOTTLE IV ONE (11:11)
[2016-12-02] MEDS ORDERED: fentaNYL 100 MCG/2 ML INJ ONE (11:12)
[2016-12-02] MEDS ORDERED: GLYCOPYRROLATE 0.2 MG/1 ML VIAL ONE (11:17)
[2016-12-02] MEDS ORDERED: ONDANSETRON 4 MG/2 ML VIAL IVP PRN (11:27)
[2016-12-02] MEDS ORDERED: NALOXONE HCL 0.4 MG/ML INJ IVP PRN (11:27)
[2016-12-02] MEDS ORDERED: fentaNYL 100 MCG/2 ML INJ IVP PRN (11:27)
[2016-12-02] MEDS ORDERED: ONDANSETRON 4 MG/2 ML VIAL ONE (11:35)
--- NOTE | 2016-12-02 12:25 | POSTANESTH ---
Post Anesthetic Evaluation Cardiovascular Status: Normal, Stable Respiratory Status: Normal, Stable Level of Consciousness/Mental Status: Can Participate in Eval Pain Control: Adequate, Prn Tx Ordered Nausea/Vomiting Control: Adequate, Prn Tx Ordered Complications Possibly Related to Anesthesia: None Noted
[2016-12-02 12:34] VITALS: TEMP 97.7
[2016-12-02 12:54] VITALS: RESP 19
[2016-12-02 13:39] VITALS: BP 117/75; O2SAT 92
--- NOTE | 2016-12-02 18:33 | GOP ---
[f rep st] OPERATIVE REPORT DATE OF OPERATION: 12/02/2016 SURGEON: Venancio Monique MD ANESTHESIA: MAC. ANESTHESIOLOGIST: Dr. Lowe. PREOPERATIVE DIAGNOSIS: Dysphagia. POSTOPERATIVE DIAGNOSIS: Dysphagia. PROCEDURE PERFORMED: Upper endoscopy with biopsy and balloon dilation. FINDINGS: INDICATIONS: A 61-year-old male, status post a massive laparoscopic reduction of a paraesophageal hernia. He has had persistent dysphagia since surgery. A barium upper GI shows occasional tertiary contractions with small hangup of a 13 mm barium tablet just above the GE junction. He is undergoing upper endoscopy with dilation given symptomatic failure to improve with conservative measures. Risks and benefits were explained of bleeding, infection, need for additional procedure or intervention, bowel perforation, as well as others. All questions were answered. He desires to proceed. DESCRIPTION OF PROCEDURE: Monitored anesthesia was started. The throat was anesthetized with Hurricaine spray. The endoscope was easily passed down to the oropharynx down to the 2nd portion of the duodenum. Of note, within the stomach was a small amount of residual vegetable matter from prior meals yesterday. The pylorus otherwise appeared normal with normal patency. Within the 1st portion of the duodenum was a small solitary nodule. This was then removed in its entirety with a cold biopsy forceps. The scope was withdrawn, showing a normal pylorus. Retroflexion the stomach showed a completely intact Regi wrap without evidence of persistent hiatal defect. There was a small amount of retained food noticed up within the fundus as well. The scope easily passed through the GE junction around the wrap. There was no significant hangup with scope passage. The visualized portions of esophagus and Z-line all appeared normal without evidence of Brooks's change or other mucosal abnormalities. There was noted to be a diffuse spasm throughout the esophagus on observing for peristalsis. An 18-20 mm TTS balloon was inserted into the stomach. This was inflated at multiple pressures up to a maximum of 2 cm. The dilation was held into place across the GE junction. The scope was withdrawn. Upon completion, there was an easy visualization down through the GE junction into the stomach without evidence of stenosis. Reinspection of the area showed no evidence of mucosal bleeding or disruption. The scope was withdrawn uneventfully and the patient taken to recovery awake and in good condition. /[id number]/MODL MTDD
== END 2016-12-02 13:30 | disposition home or self-care (01) ==
LOC: FSGY 09:10
PROVIDERS: ATTEND Surgery
DX: R13.10 Dysphagia, unspecified (principal); D3A.010 Benign carcinoid tumor of the duodenum
CPT/HCPCS: C1726; J2250; J2405; J2704; J3010

== ENCOUNTER 2017-01-06 17:25 | Emergency (ER) | payer OTHER ==
[2017-01-06 17:33] VITALS: BP 143/98; PULSE 77; RESP 18; TEMP 98.2; O2SAT 97
--- NOTE | 2017-01-06 17:43 | EDPHY ---
H & P Stated Complaint: left thumb pain after a fall last night HPI/ROS: HPI CHIEF COMPLAINT: Left thumb pain HISTORY OF PRESENT ILLNESS: Patient very pleasant 61-year-old male, presents emergency room after he states he fell last night onto his outstretched hands. He had persistent pain in his left thumb. He went to urgent care today and had x-rays and states that his x-rays were negative. No fracture. Was placed in José Luis wrap for supportive care. He got home he the José Luis wrap on for 2 hours he began to have some distal thumb pain took the José Luis wrap off the side there is some redness at the distal part of his thumb. States that was focally tender in 1 area. He denies any other areas of pain. The pain has since improved since taking José Luis wrap off. He came to the emergency room for evaluation of why he had pain. Here in the emergency room his José Luis wrap is off. His hand is neurovascular intact is full range of motion good distal pulse. Good cap refill. I do not see any signs of significant trauma on exam. I offered to re-x-ray him however he has declined. Will place in splint thumb spica Velcro for comfort. Should follow up with his primary care doctor Orthopedics. Return if any worsening symptoms. Past Medical History: Anemia Past Surgical History: No recent surgery Social History: Denies daily use drugs alcohol tobacco products Family History: Noncontributory ROS REVIEW OF SYSTEMS: A comprehensive 10 point review of systems is otherwise negative aside from elements mentioned in the history of present illness. Exam Constitutional triage nursing summary reviewed, vital signs reviewed, awake/ alert. Eyes normal conjunctivae and sclera, EOMI, PERRLA. HENT normal inspection, atraumatic, moist mucus membranes, no epistaxis, neck supple/ no meningismus, no raccoon eyes. Respiratory clear to auscultation bilaterally, normal breath sounds, no respiratory distress, no wheezing. Cardiovascular rate normal, regular rhythm, no murmur, no edema, distal pulses normal. Gastrointestinal soft, non-tender, no rebound, no guarding, normal bowel sounds, no distension, no pulsatile mass. Genitourinary no CVA tenderness. Musculoskeletal no midline vertebral tenderness, full range of motion, no calf swelling, no tenderness of extremities, no meningismus, good pulses, neurovascularly intact. Left hand thumb distal aspect no significant swelling redness or inflammation appreciated. Normal cap refill. Full range of motion. Neurovascular intact good business planning director strength. Full range of motion of the thumb. Skin pink, warm, & dry, no rash, skin atraumatic. Neurologic awake, alert and oriented x 3, AAOx3, moves all 4 extremities equally, motor intact, sensory intact, CN II-XII intact, normal cerebellar, normal vision, normal speech. Psychiatric normal mood/affect. Heme/Lymph/Immune no lymphadenopathy. Differential Diagnosis: Includes but is not limited to in a particular order thumb contusion, thumb sprain, fracture, tendinitis, arthritis Medical Decision Making: Plan for this patient has declined x-ray a repeat x- ray of his thumb. Would like to be placed in a support splint I will place him in a thumb spica Velcro splint for comfort. Recommend primary care doctor orthopedic follow-up of worsening symptoms. Additionally can return to the ER for further evaluation. He understands. Recommend icing and anti-inflammatory pain medicine. Source: Patient - Personal History Current Tetanus/Diphtheria Vaccine: No - Medical/Surgical History Hx Asthma: No Hx Chronic Respiratory Disease: No Hx Diabetes: No Hx Cardiac Disease: No Hx Renal Disease: No Hx Cirrhosis: No Hx Alcoholism: No Hx HIV/AIDS: No Hx Splenectomy or Spleen Trauma: No Other PMH: hypothyroid, anemia, syphillis, appendectomy - Social History Smoking Status: Never smoked Constitutional: Initial Vital Signs Temperature (C) 36.8 C 01/06/17 17:32 Heart Rate 77 01/06/17 17:32 Respiratory Rate 18 01/06/17 17:32 Blood Pressure 143/98 H 01/06/17 17:32 O2 Sat (%) 97 01/06/17 17:32 O2 Delivery Mode Room Air Allergies/Adverse Reactions: Penicillins Allergy (Mild, Verified 09/23/16 11:37) erythromycin base Allergy (Verified 08/29/16 10:29) Home Medications: Medication Instructions Recorded Omeprazole [Prilosec 20 mg] 06/03/16 Herbals/Supplements -Info Only 09/23/16 Levothyroxine [Synthroid 137 mcg 09/23/16 (*)] Ferrous Sulfate [Ferrous Sulf 325 11/27/16 MG (*)] Departure - Departure Disposition: Home, Routine, Self-Care Clinical Impression: Left thumb sprain Qualifiers: Encounter type: initial encounter Sprain of finger site: unspecified site Qualified Code(s): S63.602A - Unspecified sprain of left thumb, initial encounter Condition: Good Instructions: Finger Sprain (ED) Additional Instructions: 1. I recommend that you ice your hand. 2. Anti-inflammatory pain medicine for pain control. 3. Return emergency room if he develops worsening pain questions or concerns. 4. Follow up with her primary care doctor or Hand surgery. Referrals: Patsy Hutchins MD [Primary Care Provider] - As per Instructions Elliott Rogers MD [Medical Doctor] - As per Instructions
== END 2017-01-06 17:58 | disposition home or self-care (01) ==
LOC: CED 17:25
DX: S63.602A Unspecified sprain of left thumb, initial encounter (principal); W18.39XA Other fall on same level, initial encounter
CPT/HCPCS: L3807

== ENCOUNTER 2017-03-02 06:06 | Day surgery (SDC) | payer OTHER ==
[2017-03-02] MEDS ORDERED: LIDOCAINE 1% 2 ML INJ ID PRN (06:32)
[2017-03-02] MEDS ORDERED: LR 1,000 ML IV ONE (06:32)
--- NOTE | 2017-03-02 07:21 | PDANEPAE ---
ANE History of Present Illness EGD with dilation ANE Past Medical History - Cardiovascular History Hx Hypertension: No Hx Arrhythmias: No Hx Chest Pain: No Hx Coronary Artery / Peripheral Vascular Disease: No Hx CHF / Valvular Disease: No Hx Palpitations: No - Pulmonary History Hx COPD: No Hx Asthma/Reactive Airway Disease: No Hx Recent Upper Respiratory Infection: No Hx Oxygen in Use at Home: No Hx Sleep Apnea: No Sleep Apnea Screening Result - Last Documented: Negative - Neurologic History Hx Cerebrovascular Accident: No Hx Seizures: No Hx Dementia: No - Endocrine History Hx Diabetes: No Hypothyroid: Yes Hyperthyroid: No Obesity: mild Endocrine History Comment: hypothyroidism - Renal History Hx Renal Disorders: No - Liver History Hx Hepatic Disorders: No - Neurological & Psychiatric Hx Hx Neurological and Psychiatric Disorders: No - Cancer History Hx Cancer: Yes - Congenital Disorder History Hx Congenital Disorders: No - GI History GERD: no Hx Gastrointestinal Disorders: Yes Gastrointestinal History Comment: GERD. PARAESOPHAGEAL HERNIA - Other Health History Other Health History: ANEMIA. wears glasses - Chronic Pain History Chronic Pain: No - Surgical History Prior Surgeries: EGD with bx 12/03/16 with [facility]. APPENDECTOMY. THYROIDECTOMY. HIATEL HERNIA REPAIR 2017 ANE Review of Systems Review of Systems: - Exercise capacity METS (RN): 4 METS ANE Patient History - Allergies Allergies/Adverse Reactions: Penicillins Allergy (Mild, Verified 02/02/17 11:06) body aches erythromycin base Allergy (Verified 02/02/17 11:06) "it's been so long I don't remember what happened" - Home Medications Home Medications: Omeprazole [Prilosec 20 mg] 06/03/16 [Last Taken 01/30/17] Herbals/Supplements -Info Only 09/23/16 [Last Taken 01/30/17] Levothyroxine [Synthroid 137 mcg (*)] 09/23/16 [Last Taken 03/01/17] Ferrous Sulfate [Ferrous Sulf 325 MG (*)] 11/27/16 [Last Taken 01/30/17] - NPO status NPO Since - Liquids (Date): 03/01/17 NPO Since - Liquids (Time): 00:00 NPO Since - Solids (Date): 03/01/17 NPO Since - Solids (Time): 00:00 - Anes Hx Anes Hx: no prior problems - Smoking Hx Smoking Status: Former smoker Marijuana use: No - Alcohol Use Alcohol Use: Occasionally - Family Anes Hx Family Anes Hx: none Family Hx Anesthesia Complications: none ANE Labs/Vital Signs - Vital Signs Blood Pressure: 131/81 Heart Rate: 69 Respiratory Rate: 20 O2 Sat (%): 93 Height: 177.8 cm Weight: 95.254 kg ANE Physical Exam - Airway Neck exam: FROM Mallampati Score: Class 2 Mouth exam: normal dental/mouth exam - Pulmonary Pulmonary: no respiratory distress, no rales or rhonchi - Cardiovascular Cardiovascular: regular rate and rhythym, no murmur, rub, or gallop - ASA Status ASA Status: II ANE Anesthesia Plan Anesthesia Plan: MAC (Deep IV sedation)
[2017-03-02] MEDS ORDERED: MIDAZOLAM 2 MG/2 ML VIAL IVP ONE (07:22)
[2017-03-02] MEDS ORDERED: fentaNYL 100 MCG/2 ML INJ ONE (07:28)
[2017-03-02] MEDS ORDERED: PROPOFOL/EMULSION 500 MG/50 ML BOTTLE IV ONE (07:28)
[2017-03-02] MEDS ORDERED: fentaNYL 100 MCG/2 ML INJ IVP PRN (08:16)
[2017-03-02] MEDS ORDERED: ONDANSETRON 4 MG/2 ML VIAL IVP PRN (08:16)
[2017-03-02] MEDS ORDERED: NALOXONE HCL 0.4 MG/ML INJ IVP PRN (08:16)
[2017-03-02] MEDS ORDERED: OXYCODONE/APAP 5/325 TAB PO PRN (08:16)
[2017-03-02] MEDS ORDERED: HYDROCODONE/APAP 5/325 TAB PO PRN (08:16)
--- NOTE | 2017-03-02 08:31 | GOP ---
[f rep st] OPERATIVE REPORT DATE OF OPERATION: 03/02/2017 SURGEON: Venancio Monique MD ANESTHESIA: IV general. ANESTHESIOLOGIST: Dr. Lowe PREOPERATIVE DIAGNOSIS: 1. Dysphagia. 2. Carcinoid tumor. POSTOPERATIVE DIAGNOSIS: 1. Dysphagia. 2. Carcinoid tumor. PROCEDURE PERFORMED: Upper endoscopy with dilation. FINDINGS: No new duodenal nodules. INDICATIONS: 62-year-old male status post prior Regi fundoplication. He has ongoing complaints of mild dysphagia with occasional turkey or rice. His reflux symptoms are markedly improved. A prior carcinoid tumor was seen in the proximal duodenum at his last endoscopy. He is undergoing a repeat surveillance endoscopy with dilation at this time. Risks and benefits of bleeding, infection, recurrent esophageal stricture, bowel perforation, need for additional intervention as well as others. All questions were answered. He desires to proceed. DESCRIPTION OF PROCEDURE: After general anesthesia was induced, the endoscope was passed via the oropharynx down to the third portion of the duodenum. The duodenal sweep all appeared normal. No evidence of nodularity was seen. A duodenal diverticula was noted adjacent to the ampulla. The mucosa was otherwise normal in appearance. The scope was withdrawn, showing a normal pylorus with mild clinical gastritis. No nodularity was present. The remaining body and antrum of the stomach appeared normal. The scope was retroflexed, showing a nice intact wrap. The scope was easily withdrawn into the esophagus, showing a normal-appearing Z-line as remaining esophageal mucosa. A guidewire was passed through the endoscope. Given the patient's complaints of persistent dysphagia symptoms, 51 and 57 Savary dilators were passed over the guidewire without difficulty. The scope was reinserted, showing no evidence of bleeding. The patient was taken to recovery room awake uneventfully. /[id number]/MODL MTDD
[2017-03-02 08:52] VITALS: PULSE 79; TEMP 97.5
[2017-03-02] MEDS ORDERED: GLYCOPYRROLATE 0.2 MG/1 ML VIAL ONE (08:59)
[2017-03-02 09:21] VITALS: BP 110/72; RESP 18; O2SAT 91
== END 2017-03-02 09:27 | disposition home or self-care (01) ==
LOC: FSGY 06:06
PROVIDERS: ATTEND Surgery
PROC: 0DJ08ZZ Inspection of Upper Intestinal Tract, Via Natural or Artificial Opening Endoscopic (ICD-10-PCS; principal; 2017-03-02 07:30)
DX: I69.991 Dysphagia following unspecified cerebrovascular disease (principal); D37.2 Neoplasm of uncertain behavior of small intestine; K44.9 Diaphragmatic hernia without obstruction or gangrene; E04.9 Nontoxic goiter, unspecified; R10.84 Generalized abdominal pain
CPT/HCPCS: J2704; J3010

== ENCOUNTER 2017-09-24 05:55 | Day surgery (SDC) | payer OTHER ==
[2017-09-24] MEDS ORDERED: LR 1,000 ML IV ONE (06:36)
[2017-09-24] MEDS ORDERED: LIDOCAINE 1% 2 ML INJ ID PRN (06:36)
--- NOTE | 2017-09-24 06:55 | PDANEPAE ---
ANE History of Present Illness h/o carcinoid here for egd ANE Past Medical History - Cardiovascular History Hx Hypertension: No Hx Arrhythmias: No Hx Chest Pain: No Hx Coronary Artery / Peripheral Vascular Disease: No Hx CHF / Valvular Disease: No Hx Palpitations: No - Pulmonary History Hx COPD: No Hx Asthma/Reactive Airway Disease: No Hx Recent Upper Respiratory Infection: No Hx Oxygen in Use at Home: No Hx Sleep Apnea: No Sleep Apnea Screening Result - Last Documented: Negative - Neurologic History Hx Cerebrovascular Accident: No Hx Seizures: No Hx Dementia: No - Endocrine History Hx Diabetes: No Endocrine History Comment: HYPOTHYROID - Renal History Hx Renal Disorders: No - Liver History Hx Hepatic Disorders: No - Neurological & Psychiatric Hx Hx Neurological and Psychiatric Disorders: No - Cancer History Hx Cancer: No - Congenital Disorder History Hx Congenital Disorders: No - GI History Hx Gastrointestinal Disorders: Yes Gastrointestinal History Comment: GERD. PARAESOPHAGEAL HERNIA - Other Health History Other Health History: none - Chronic Pain History Chronic Pain: No - Surgical History Prior Surgeries: APPENDECTOMY,. 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 naveen funoplication 09/23/16. bilat cataract sx ANE Review of Systems Review of Systems: - Exercise capacity METS (RN): 4 METS ANE Patient History - Allergies Allergies/Adverse Reactions: Penicillins Allergy (Mild, Verified 09/22/17 14:15) body aches erythromycin base Allergy (Verified 09/22/17 14:15) "it's been so long I don't remember what happened" - Home Medications Home medications: home medication list seen and reviewed Home Medications: Omeprazole [Prilosec 20 mg] 06/03/16 [Last Taken 01/30/17] Levothyroxine [Synthroid 137 mcg (*)] 09/23/16 [Last Taken 03/01/17] - NPO status NPO Status: no food or drink >8 hours - Anes Hx Anes Hx: no prior problems - Smoking Hx Smoking Status: Never smoked - Alcohol Use Alcohol Use: Occasionally - Family Anes Hx Family Anes Hx: none Family Hx Anesthesia Complications: none ANE Labs/Vital Signs - Vital Signs Vital Signs: reviewed preoperatively; see RN documention for details Height: 177.8 cm Weight: 95.254 kg ANE Physical Exam - Airway Neck exam: FROM Mallampati Score: Class 2 Mouth exam: normal dental/mouth exam - Pulmonary Pulmonary: no respiratory distress, clear to auscultation - Cardiovascular Cardiovascular: regular rate and rhythym, no murmur, rub, or gallop - ASA Status ASA Status: II ANE Anesthesia Plan Anesthesia Plan: GA w LMA
[2017-09-24] MEDS ORDERED: PROPOFOL/EMULSION 500 MG/50 ML BOTTLE IV ONE (06:58)
--- NOTE | 2017-09-24 07:31 | POSTOPPROG ---
Post Op Note Date of Operation: 09/24/17 Surgeon: Venancio Monique Anesthesiologist: Herbert Eagle Anesthesia: IV Sedation Pre-op Diagnosis: Duodenal carcinoid Post-op Diagnosis: Same Procedure: EGD Findings: recurrent carcinoid post pyloric, ti-knot suture erosion through esophagus Inf/Abcess present in the surg proc area at time of surgery?: No EBL: Minimal Complications: no immediate
[2017-09-24] MEDS ORDERED: EPINEPHrine 1 MG/10 ML SYR IVP ONE (07:41)
[2017-09-24] MEDS ORDERED: PROPOFOL 200 MG/20 ML VIAL ONE (07:51)
[2017-09-24] MEDS ORDERED: ONDANSETRON 4 MG/2 ML VIAL IVP PRN (08:00)
[2017-09-24] MEDS ORDERED: ACETAMINOPHEN 500 MG TAB PO PRN (08:00)
[2017-09-24] MEDS ORDERED: NALOXONE HCL 0.4 MG/ML INJ IVP PRN (08:00)
--- NOTE | 2017-09-24 08:01 | POSTANESTH ---
Post Anesthetic Evaluation Cardiovascular Status: Normal, Stable, Similar to Pre-Op Cond Respiratory Status: Normal, Stable, Similar to Pre-op Cond. Level of Consciousness/Mental Status: Can Participate in Eval, Moderately Sleepy Pain Control: Adequate, Prn Tx Ordered Nausea/Vomiting Control: Adequate, Prn Tx Ordered Complications Possibly Related to Anesthesia: None Noted
--- NOTE | 2017-09-24 08:22 | GOP ---
[f rep st] OPERATIVE REPORT DATE OF OPERATION: 09/24/2017 SURGEON: Venancio Monique MD ANESTHESIA: MAC. ANESTHESIOLOGIST: Zohaib Mijares MD. PREOPERATIVE DIAGNOSIS: Duodenal carcinoid tumor. POSTOPERATIVE DIAGNOSIS: Duodenal carcinoid tumor. PROCEDURE PERFORMED: Upper endoscopy with biopsy. FINDINGS: See below. INDICATIONS: 62-year-old male with a significant history of a massive paraesophageal hernia. He underwent a laparoscopic reduction. Postoperative endoscopy showed a small post pyloric duodenal carcinoid tumor which had been previously biopsied and removed. He is undergoing surveillance endoscopy today. Risks and benefits were explained of bleeding, infection, bowel perforation, as well as others. All questions were answered. He desires to proceed. DESCRIPTION OF PROCEDURE: Monitored anesthesia was started. The endoscope was passed through the oropharynx down to the 3rd portion of the duodenum. The 2nd and 3rd portion of the duodenum appeared normal. Just beyond the pylorus was a recurrent circumscribed mass at the proximal most portion of the 1st portion of the duodenum. No other mass lesions were noted. The scope was withdrawn to the stomach showing a normal pylorus, as well as body of the stomach. No other mass lesions were noted in the stomach. The wrap was noted intact at approximately 40 cm. On retroflexion, there was diffuse erythema within the fundus of the stomach. Portions of this were biopsied with a cold forceps. The scope was withdrawn into the esophagus showing a normal-appearing Z-line. There was evidence of a prior TI-Knot suture erosion through the esophagus. No inflammatory changes were present in this location. This was not further disturbed. The remaining esophagus appeared normal. The duodenal mass was further inspected. This was not felt easily removed with a snare or cold biopsy forceps. A portion of it was biopsied for diagnostic purposes with further discussion with GI regarding possible submucosal resection. The scope was withdrawn uneventfully, and the patient taken to recovery in good condition. /[id number]/MODL MTDD
[2017-09-24 09:43] VITALS: BP 132/84
== END 2017-09-24 09:40 | disposition home or self-care (01) ==
LOC: FSGY 05:55
PROVIDERS: ATTEND Surgery
DX: K31.9 Disease of stomach and duodenum, unspecified (principal); K29.80 Duodenitis without bleeding; I69.991 Dysphagia following unspecified cerebrovascular disease; E04.9 Nontoxic goiter, unspecified; Z86.012 Personal history of benign carcinoid tumor
CPT/HCPCS: J2704

== ENCOUNTER 2017-11-24 09:34 | Inpatient (IN) | payer OTHER ==
[2017-11-24] MEDS ORDERED: LR 1,000 ML IV ONE (09:43)
[2017-11-24] MEDS ORDERED: LIDOCAINE 1% 2 ML INJ ID PRN (09:43)
--- NOTE | 2017-11-24 10:39 | PDANEPAE ---
ANE History of Present Illness h/o carcinoid here for small bowel resection ANE Past Medical History - Cardiovascular History Hx Hypertension: No Hx Arrhythmias: No Hx Chest Pain: No Hx Coronary Artery / Peripheral Vascular Disease: No Hx CHF / Valvular Disease: No Hx Palpitations: No - Pulmonary History Hx COPD: No Hx Asthma/Reactive Airway Disease: No Hx Recent Upper Respiratory Infection: No Hx Oxygen in Use at Home: No Hx Sleep Apnea: No Sleep Apnea Screening Result - Last Documented: Negative - Neurologic History Hx Cerebrovascular Accident: No Hx Seizures: No Hx Dementia: No - Endocrine History Hx Diabetes: No Endocrine History Comment: HYPOTHYROID - Renal History Hx Renal Disorders: No - Liver History Hx Hepatic Disorders: No - Neurological & Psychiatric Hx Hx Neurological and Psychiatric Disorders: No - Cancer History Hx Cancer: Yes Cancer History Comment: DIGESTIVE ORGAN - Congenital Disorder History Hx Congenital Disorders: No - GI History Hx Gastrointestinal Disorders: Yes Gastrointestinal History Comment: GERD. PARAESOPHAGEAL HERNIA - Other Health History Other Health History: none - Chronic Pain History Chronic Pain: Yes (GI REGION) - Surgical History Prior Surgeries: EGD 09/2017 AT [facility]. EGD 08/2017. APPENDECTOMY,. 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 naveen funoplication 09/23/16. bilat cataract sx ANE Review of Systems Review of Systems: - Exercise capacity METS (RN): 4 METS ANE Patient History - Allergies Allergies/Adverse Reactions: Penicillins Allergy (Mild, Verified 09/22/17 14:15) body aches erythromycin base Allergy (Verified 09/22/17 14:15) "it's been so long I don't remember what happened" - Home Medications Home Medications: Levothyroxine [Synthroid 125 mcg (*)] 125 mcg PO DAILY06 11/19/17 [Last Taken ] - NPO status NPO Status: no food or drink >8 hours NPO Since - Liquids (Date): 11/23/17 NPO Since - Liquids (Time): 22:00 NPO Since - Solids (Date): 11/23/17 NPO Since - Solids (Time): 22:00 - Anes Hx Anes Hx: no prior problems - Smoking Hx Smoking Status: Never smoked - Alcohol Use Alcohol Use: Occasionally - Family Anes Hx Family Anes Hx: none Family Hx Anesthesia Complications: none ANE Labs/Vital Signs - Vital Signs Blood Pressure: 153/93 Heart Rate: 67 Respiratory Rate: 15 O2 Sat (%): 92 Height: 172.72 cm Weight: 104.326 kg ANE Physical Exam - Airway Neck exam: FROM Mallampati Score: Class 2 Mouth exam: normal dental/mouth exam - Pulmonary Pulmonary: no respiratory distress, clear to auscultation - Cardiovascular Cardiovascular: regular rate and rhythym, no murmur, rub, or gallop - ASA Status ASA Status: II ANE Anesthesia Plan Anesthesia Plan: general endotracheal anesthesia, epidural Regional Anesthesia: TAP block
[2017-11-24] MEDS ORDERED: MIDAZOLAM 2 MG/2 ML VIAL IVP ONE (10:40)
[2017-11-24] MEDS ORDERED: ZOLPIDEM TARTRATE 5 MG TAB PO PRN (10:51)
[2017-11-24] MEDS ORDERED: HYDROmorphONE/DILAUDID 1 MG/ML INJ IVP PRN ×2 (10:51→15:46)
[2017-11-24] MEDS ORDERED: ACETAMINOPHEN 325 MG TAB PO PRN (10:51)
--- NOTE | 2017-11-24 10:51 | POSTOPPROG ---
Post Op Note Date of Operation: 11/24/17 Surgeon: Venancio Monique District Associate Judge: Tiki Kirk PA-C Anesthesiologist: Ebony Anesthesia: GET(General Endotracheal) Pre-op Diagnosis: Duodenal carcinoid tumor Post-op Diagnosis: same Procedure: Bilroth 1 with distal gastrectomy and proximal duodenal resection Inf/Abcess present in the surg proc area at time of surgery?: No EBL: 50-100 Complications: no immediate Specimen(s): distal stomach and proximal duodenum, 2 duodenal biopsies
[2017-11-24] MEDS ORDERED: ceFAZolin 2 GM/DEXTROSE 100 ML IV ONE (10:55)
[2017-11-24] MEDS ORDERED: fentaNYL 100 MCG/2 ML INJ ONE ×2 (10:57→16:14)
[2017-11-24] MEDS ORDERED: PROPOFOL 200 MG/20 ML VIAL ONE (10:58)
[2017-11-24] MEDS ORDERED: LIDOCAINE 2% 100 MG/5 ML SYR ONE (10:58)
[2017-11-24] MEDS ORDERED: ROCURONIUM 100 MG/10 ML VIAL ONE (10:58)
[2017-11-24] MEDS ORDERED: morphINE PF 5 MG/10 ML INJ ONE (11:12)
[2017-11-24] MEDS ORDERED: KETOROLAC 15 MG/1 ML SDV IVP SCH (12:00)
[2017-11-24] MEDS ORDERED: PHENYLEPHRINE HCL 100 MCG/ML SYR ONE ×2 (12:02)
[2017-11-24] MEDS ORDERED: EPINEPHrine 1 MG/ML INJ ONE (12:33)
[2017-11-24] MEDS ORDERED: DEXAMETHASONE 4 MG/ML VIAL ONE (14:09)
[2017-11-24] MEDS ORDERED: ONDANSETRON 4 MG/2 ML VIAL ONE (14:09)
[2017-11-24] MEDS ORDERED: HYDROmorphONE/DILAUDID 2 MG/ML INJ ONE (15:44)
[2017-11-24] MEDS ORDERED: NALOXONE HCL 0.4 MG/ML INJ IVP PRN (15:58)
[2017-11-24] MEDS ORDERED: oxyCODONE IR 5 MG TAB PO PRN (15:58)
[2017-11-24] MEDS ORDERED: HYDROCODONE/APAP 5/325 TAB PO PRN (15:58)
[2017-11-24] MEDS ORDERED: ONDANSETRON 4 MG/2 ML VIAL IVP PRN (15:58)
[2017-11-24] MEDS ORDERED: ACETAMINOPHEN 500 MG TAB PO PRN (15:58)
[2017-11-24] MEDS ORDERED: PROMETHAZINE HCL 25 MG/ML INJ IVP PRN (15:58)
--- NOTE | 2017-11-24 16:03 | POSTANESTH ---
Post Anesthetic Evaluation Cardiovascular Status: Normal, Stable, Similar to Pre-Op Cond Respiratory Status: Normal, Stable, Similar to Pre-op Cond. Level of Consciousness/Mental Status: Can Participate in Eval, Alert and Oriented Pain Control: Adequate, Prn Tx Ordered Nausea/Vomiting Control: Adequate, Prn Tx Ordered Complications Possibly Related to Anesthesia: None Noted
[2017-11-24] MEDS: fentaNYL 100 MCG/2 ML INJ IVP PRN ×2 (16:16→16:28)
--- NOTE | 2017-11-24 16:26 | GOP ---
[f rep st] OPERATIVE REPORT DATE OF OPERATION: 11/24/2017 SURGEON: Venancio Monique MD ENTRY LEVEL SOFTWARE DEVELOPER: Tiki Kirk PA-C. ANESTHESIA: General with spinal and tap block. ANESTHESIOLOGIST: Dr. Mijares. PREOPERATIVE DIAGNOSIS: Duodenal carcinoid tumor. POSTOPERATIVE DIAGNOSIS: Duodenal carcinoid tumor. PROCEDURE PERFORMED: 1. Duodenotomy with duodenal exploration. 2. Distal gastrectomy with Billroth-I anastomosis. FINDINGS: Difficulty visualizing postpyloric tumor - duodenal resection completed. INDICATIONS: 62-year-old male with a duodenal carcinoid noted on endoscopic imaging. He underwent initial endoscopic removal with subsequent recurrence approximately 6 months later. Attempted submucosal resection was entertained on multiple occasions unsuccessfully. He is taken to the operating room today for an open excision. Risks and benefits were explained including bleeding, infection, suture line leak, recurrence, differential diagnoses as well as alternative findings. All questions were answered. He desires to proceed. DESCRIPTION OF PROCEDURE: General anesthesia was induced. The abdomen was explored through a vertical upper midline laparotomy. Abdominal exploration revealed a normal thickened omentum. The liver appeared normal. Peritoneal surfaces appeared normal. The stomach and duodenum appeared normal. The patient had previously undergone a Regi fundoplication. The body and antrum of the stomach were nicely mobile without any rigidity to the left upper quadrant. A Carole maneuver was completed, allowing for the duodenal sweep to be elevated medially. External palpation of the duodenum showed no definite palpable lesions. The less sac was opened to facilitate bimanual palpation of the duodenum. A longitudinal duodenotomy was subsequently created after placing stay sutures along the pylorus. The duodenotomy was taken through the pylorus. Multiple suspect areas of possible tumor formation just beyond the pylorus were then submucosally injected with epinephrine and sampled. Frozen section was unable to confirm definite evidence of carcinoid tumor. Duodenotomy was extended and the mucosa was thoroughly investigated down to the level of the ampulla of Vater. No definite protruding lesion was noted as seen on all prior endoscopies. At this point it was opted to proceed with a distal gastrectomy with Billroth-I anastomosis to include the previously biopsied and suspect areas. To facilitate this the distal portions of the gastroepiploic vessels were taken off the pylorus. The lesser omentum was opened allowing for the superior aspect of the pylorus to be dissected away. The stomach was encompassed distally just proximal to the pylorus. This was transected with a TA 60 stapling device using the ultrasonic dissector. The mesenteric dissection was taken down to the upper portion of the 2nd part of the duodenum. The ampulla was identified and preserved throughout the dissection with copious bile spillage noted at all times. The bowel was transected at this location. A Billroth-I anastomosis was created in 2 layers with an outer layer of interrupted PDS suture with a running inner layer of PDS suture. Excellent luminal patency was assured as was excellent viability to both cut edges. No tension was present upon the anastomosis whatsoever. The stomach was insufflated with air showing no extraluminal bubbling. Satisfactory hemostasis was assured. Portions of the omentum were placed alongside the anastomosis. The midline fascia was closed with a running PDS suture. The skin was closed with Monocryl suture followed by Dermabond. The patient was extubated in the Operating Room and taken to Recovery uneventfully. /[id number]/MODL MTDD
[2017-11-24] MEDS ORDERED: HYDROmorphONE/DILAUDID 1 MG/ML INJ ONE (16:30)
[2017-11-24] MEDS: HYDROmorphONE/DILAUDID 1 MG/ML INJ IVP PRN ×2 (16:34→16:52)
[2017-11-24] MEDS: ONDANSETRON 4 MG/2 ML VIAL IVP PRN ×2 (17:37→21:39)
--- NOTE | 2017-11-24 18:32 | PDMN ---
Medical Necessity Medical necessity: MCG: S510- Gastrectomy , Partial Billroth I or II 4-6 days INPT only: Duodenotomy with duodenal exploration, Distal gastrectomy with Billroth-I anastomosis
[2017-11-24] MEDS: LR 1,000 ML IV SCH (18:45)
[2017-11-24] MEDS: FAMOTIDINE 20 MG/NACL 50 ML IV SCH (21:32)
[2017-11-24] MEDS: PROMETHAZINE HCL 25 MG/ML INJ IVP PRN (22:22)
--- NOTE | 2017-11-25 08:07 | SOAPPROG ---
SOAP Progress Note Assessment/Plan: Assessment:no overnight issues. min pain. nausea better. no void yet - feels desire. afebrile. bp 90-110. comfortable. abd dist, soft. NG gastric. incis clean. Hb 12. lytes normal. pod#1 s/p B1/distal gastrectomy with duodenectomy. doing very well. gastrograffin swallow - NG out if no issues. clears. straight cath if unable to void. ambulate. no other new concerns. Plan: 11/25/17 08:05 Objective: Vital Signs Temp Pulse Resp BP Pulse Ox 37.5 C 75 16 99/57 L 90 L 11/25/17 04:41 11/25/17 04:00 11/25/17 04:00 11/25/17 04:41 11/25/17 04:00 Laboratory Results 11/25/17 05:32 11/25/17 05:32 11/24/17 11/25/17 11/26/17 05:59 05:59 05:59 Intake Total 2803 Output Total 725 Balance 2078 ICD10 Worksheet Patient Problems: Problems Problem Status Onset Anemia Acute Goiter Acute
[2017-11-25] MEDS: FAMOTIDINE 20 MG/NACL 50 ML IV SCH (08:09)
[2017-11-25] MEDS: LR 1,000 ML IV SCH (09:01)
[2017-11-25] MEDS: PROMETHAZINE HCL 25 MG/ML INJ IVP PRN (11:12)
--- NOTE | 2017-11-25 15:55 | ASMTCMCOM ---
CM Note CM Note Notes: Reviewed chart, no needs identified. Anticipate pt katiana dc home w/support of when medically stable. CM available for any changes. DC Plan: Independent Date Signed: 11/25/2017 03:55 PM Electronically Signed By:Kavita Ferguson RN
[2017-11-25] MEDS: HYDROCODONE/APAP 5/325 TAB PO PRN ×2 (18:18→19:14)
[2017-11-25] MEDS: FAMOTIDINE 20 MG TAB PO SCH (20:18)
[2017-11-26 07:19] VITALS: BP 128/68
[2017-11-26] MEDS ORDERED: LEVOTHYROXINE 125 MCG TAB PO SCH (07:45)
--- NOTE | 2017-11-26 07:52 | SOAPPROG ---
SOAP Progress Note Assessment/Plan: Assessment:doing well. pain adeq controlled with norco. no further nausea. tolerating po well. avss. comfortable. abd soft, dist. incis clean. pod#2 s/p B1/distal gastrectomy with duodenectomy. excellent progress. home today. no overnight issues. min pain. nausea better. no void yet - feels desire. afebrile. bp 90-110. comfortable. abd dist, soft. NG gastric. incis clean. Hb 12. lytes normal. pod#1 s/p B1/distal gastrectomy with duodenectomy. doing very well. gastrograffin swallow - NG out if no issues. clears. straight cath if unable to void. ambulate. no other new concerns. 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
--- NOTE | 2017-11-26 08:03 | GDS ---
[f rep st] DISCHARGE SUMMARY REASON FOR ADMISSION: Duodenal carcinoid tumor. 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 He underwent a distal gastrectomy and duodenectomy with Billroth 1 reconstruction. He had a benign postoperative course. He was discharged home on postop day #2 in good condition, tolerating a regular diet with adequate pain control with oral analgesics. He was to resume all pre-hospital medications inclusive of levothyroxine. He was to resume his prior home omeprazole for an additional 7-10 days. He was given prescription for [place] as needed for discomfort. It was recommended he continue with frequent small meals. Full activity instructions were explained to the patient prior to leaving. We will plan to see him in followup in 2 weeks. /[id number]/MODL MTDD
[2017-11-26] MEDS: FAMOTIDINE 20 MG TAB PO SCH (08:13)
[2017-11-26] MEDS: HYDROCODONE/APAP 5/325 TAB PO PRN (08:14)
[2017-11-26] MEDS ORDERED: HYDROCODONE/APAP 5/325 TAB PO SCH (10:00)
== END 2017-11-26 10:06 | disposition home or self-care (01) | DRG 328 ==
LOC: F3N 09:34 → F3E 13:28
PROVIDERS: ADMIT Surgery; ATTEND Surgery
PROC: 0DB60ZZ Excision of Stomach, Open Approach (ICD-10-PCS; principal; 2017-11-24 11:15)
PROC: 0DB90ZX Excision of Duodenum, Open Approach, Diagnostic (ICD-10-PCS; principal; 2017-11-24 11:15)
PROC: 0D160Z9 Bypass Stomach to Duodenum, Open Approach (ICD-10-PCS; principal; 2017-11-24 11:15)
DX: C17.0 Malignant neoplasm of duodenum (principal); E03.9 Hypothyroidism, unspecified; D64.9 Anemia, unspecified; K21.9 Gastro-esophageal reflux disease without esophagitis; E04.9 Nontoxic goiter, unspecified; I69.991 Dysphagia following unspecified cerebrovascular disease
CPT/HCPCS: J0171; J0690; J1100; J1170; J2001; J2250; J2274; J2370; J2405; J2550; J2704; J3010

== ENCOUNTER 2018-05-12 23:52 | Emergency (ER) | payer OTHER, MEDICARE ==
[2018-05-13] MEDS ORDERED: KETOROLAC 15 MG/1 ML SDV IVP ONE (00:35)
[2018-05-13] MEDS ORDERED: IOPAMIDOL (ISOVUE-300) 100 ML BTL ONE (00:50)
--- NOTE | 2018-05-13 01:32 | EDPHY ---
H & P Stated Complaint: generalized abd pain 5/10 x 2 nights. worse after eating. worse tonight. Time Seen by Provider: 05/13/18 00:11 HPI/ROS: CC: abdominal pain HPI: This 63-year-old male with past medical history including a distal gastrectomy and duodenectomy with Billroth 1 reconstruction for a duodenal carcinoid tumor, anemia, nontoxic goiter, presents to the emergency department tonight with his complaining of abdominal pain for the last 2 days. He states it starts about 20 min after he eats and lasts for several hours. Yesterday he had some minimal relief with simethicon but he had no relief this evening after taking simethicon and dicyclomine. The pain started to become constant at 7:30 p.m.. It is generalized and he describes it as dull and crampy. Currently it is 4/10 but it has been up to 7/10 earlier. He denies change in his bowel movements and his last bowel movement was this evening. He complains of nausea and had a small amount of vomiting yesterday. He has not had a fever. He denies dysuria. REVIEW OF SYSTEMS: Constitutional: No fever, no chills. Eyes: No discharge. ENT: No sore throat. Respiratory: No cough, no shortness of breath. Cardiac: No chest pain, no palpitations. Gastrointestinal: See HPI. Genitourinary: No dysuria. Musculoskeletal: No back pain. Skin: No rashes. Neurological: No headache. Source: Patient, Family () Exam Limitations: No limitations - Personal History Current Tetanus Diphtheria and Acellular Pertussis (TDAP): No - Medical/Surgical History PMH: PMH: Duodenal carcinoid tumor, nontoxic goiter, anemia, GERD, hiatal hernia PSH: Distal gastrectomy and duodenectomy with Billroth 1 reconstruction, Regi fundoplication, appendectomy, total thyroidectomy FH: Mother - colon cancer; Father - bladder cancer; Brother - Crohn's disease Allergy: Penicillin causes body aches; Erythromycin base (he doesn't remember reaction) PCP: Dr. Patsy Hutchins with [facility]; Surgeon Dr. Venancio Monique; Heme/Onc Dr. Aviva Monique Hx Asthma: No Hx Chronic Respiratory Disease: No Hx Diabetes: No Hx Cardiac Disease: No Hx Renal Disease: No Hx Cirrhosis: No Hx Alcoholism: No Hx HIV/AIDS: No Hx Splenectomy or Spleen Trauma: No Other PMH: anemia- now fixed, jamal sipelas (strep infection in face), appendectomy, duodenal carcinoid removed, thyroidectomy, hiatal hernia repair - Social History Smoking Status: Never smoked Additional Social History: . Denies history of tobacco use. Drinks an occasional beer. No recreational drugs. - Physical Exam Exam: General Appearance: Alert, moderate distress. Eyes: Pupils equal and round no pallor or injection. ENT, Mouth: Mucous membranes are slightly dry. Respiratory: There are no retractions, lungs are clear to auscultation. Cardiovascular: Regular rate and rhythm. Gastrointestinal: Abdomen is soft with mild diffuse tenderness, quiet bowel sounds. No rebound, guarding, or rigidity. No palpable masses. Neurological: Awake and alert, sensory and motor exams grossly normal. Skin: Warm and dry, no rashes. Musculoskeletal: Neck is supple, nontender. Extremities are symmetrical, full range of motion. Psychiatric: Patient is oriented X 3, there is no agitation. DIFFERENTIAL DIAGNOSIS: After history and physical exam differential diagnosis was considered for but not limited to and in no particular order: pancreatitis, cholecystitis, gastritis, bowel obstruction, diverticulitis, colitis, UTI, not AAA Constitutional: Initial Vital Signs Temperature (C) 98.2 F 05/13/18 00:03 Heart Rate 85 05/13/18 00:03 Respiratory Rate 16 05/13/18 00:03 Blood Pressure 169/100 H 05/13/18 00:03 O2 Sat (%) 94 05/13/18 00:03 O2 Delivery Mode Room Air Allergies/Adverse Reactions: Penicillins Allergy (Mild, Verified 05/12/18 23:53) body aches erythromycin base Allergy (Verified 05/12/18 23:53) "it's been so long I don't remember what happened" Home Medications: Medication Instructions Recorded Levothyroxine [Synthroid 125 mcg 125 mcg PO DAILY06 11/19/17 (*)] Medical Decision Making - Diagnostics Imaging Results: PRELIMINARY REPORTS BY DIRECT RADIOLOGY: CT abdomen/pelvis with IV contrast suspicious for cholecystitis. US RUQ shows fatty infiltration of the liver with probable gallbladder polyp. No acute process. Imaging: Discussed imaging studies w/ analytical chemistry teacher Radiologist ED Course/Re-evaluation: The patient was seen and examined. Vital signs reviewed and significant for hypertension with a blood pressure of 169/100 mmHg. The patient states sometimes it is high and sometimes it is low. He is not on any medication for hypertension. I advised him to follow up on his blood pressure with his primary care provider. His prior records were reviewed as well. His pain was relieved almost entirely by 15 mg of IV Toradol. PRELIMINARY REPORT BY DIRECT RADIOLOGY: CT of abdomen and pelvis with IV contrast showed the gallbladder to be abnormally distended with gallbladder wall thickening and surrounding inflammatory change/fat stranding. These findings are new in her suspicious for acute cholecystitis. 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 The patient's CBC showed a slight elevation of his white blood cell count at 11.3 with 85 neutrophils. Hemoglobin, hematocrit, platelets were all normal. Chemistry was significant for a mild hypokalemia at 3.2. His BUN and creatinine were normal at 9 and 0.9 respectively. His liver function tests were normal with total bilirubin 1.2, AST 27, ALT 29, lipase 82. Lactic acid 1.4. His urine showed trace blood. PRELIMINARY REPORT BY DIRECT RADIOLOGY: US of the Gallbladder shows fatty infiltration of the liver with probable gallbladder polyp. No acute process. The patient was advised to call his surgeon 1st thing in morning to arrange follow-up. He may want to consider a HIDA scan as well as other studies as clinically indicated. He should follow up with his primary care provider regarding his blood pressure and a repeat urinalysis. In the meantime he may want to consider Mylanta or Maalox, Prilosec OTC. He was given a take-home pack of [place] as well with caution regarding constipation. He should return to the emergency room if the pain returns, nausea, vomiting, fever, or any other concerns. - Data Points Laboratory Results: 05/13/18 05/13/18 05/13/18 00:17 00:14 00:14 POC Sodium 142 mEq/L mEq/L (135-145) POC Potassium 3.2 mEq/L L mEq/L (3.3-5.0) POC Chloride 101.0 mEq/L mEq/L (97-110) POC Total CO2 25 mEq/L mEq/L (22-31) POC BUN 9 mg/dL mg/dL (7-23) POC Creatinine 0.9 mg/dL mg/dL (0.7-1.3) POC Glucose 110 mg/dL H mg/dL (70-100) POC Lactic Acid Subhash 1.4 mmol/L mmol/L (0.7-2.1) POC Calcium 9.6 mg/dL mg/dL (8.5-10.4) POC Total Bilirubin 1.2 mg/dL mg/dL (0.1-1.4) POC AST 27 IU/L IU/L (17-59) POC ALT 29 IU/L IU/L (21-72) POC Alk Phosphatase 72 IU/L IU/L (38-126) POC Total Protein 7.3 g/dL g/dL (6.3-8.2) POC Albumin 4.1 g/dL g/dL (3.5-5.0) Lipase 82 IU/L IU/L (23-300) Medications Given: Discontinued Medications Ketorolac Tromethamine (Toradol) 15 mg IVP EDNOW ONE Stop: 05/13/18 00:36 Last Admin: 05/13/18 00:40 Dose: 15 mg Point of Care Test Results: CBC CBC Collection Date 05/13/18 CBC Collection Time 00:14 WBC 11.3 RBC 5.14 HGB 15.6 HCT 46.3 PLT 247 Neut # 9.57 Neut 84.7 LYMPH # 0.86 LYMPH 7.6 MCV 90.1 Chemistry 05/13/18 00:14 POC Sodium 142 mEq/L mEq/L (135-145) POC Potassium 3.2 mEq/L L mEq/L (3.3-5.0) POC Chloride 101.0 mEq/L mEq/L (97-110) POC Total CO2 25 mEq/L mEq/L (22-31) POC BUN 9 mg/dL mg/dL (7-23) POC Creatinine 0.9 mg/dL mg/dL (0.7-1.3) POC Glucose 110 mg/dL H mg/dL (70-100) POC Calcium 9.6 mg/dL mg/dL (8.5-10.4) POC Total Bilirubin 1.2 mg/dL mg/dL (0.1-1.4) POC AST 27 IU/L IU/L (17-59) POC ALT 29 IU/L IU/L (21-72) POC Alk Phosphatase 72 IU/L IU/L (38-126) POC Total Protein 7.3 g/dL g/dL (6.3-8.2) POC Albumin 4.1 g/dL g/dL (3.5-5.0) Blood Gas/Lactic Acid-Venous 05/13/18 00:17 POC Lactic Acid Subhash 1.4 mmol/L mmol/L (0.7-2.1) Urine Dip Collection Date 05/13/18 Collection Time 00:53 Specific [place] (1.002-1.030) 1.010 PH (5.0-7.5) 7.0 Leukocytes (Negative) Negative Nitrites (Negative) Negative Protein (Negative) Negative Glucose (Negative) Negative Ketones (Negative) Trace Urobilnogen (0.2-1.0 EU) 0.2 Bilirubin (Negative) Negative Blood (Negative) Trace Departure - Departure Disposition: Home, Routine, Self-Care Clinical Impression: Abdominal pain in male Condition: Good Instructions: Acute Abdominal Pain (ED), Biliary Colic (ED), Hypokalemia (ED), Hypertension (ED), Hydrocodone/Acetaminophen (By mouth) Additional Instructions: Called Dr. Venancio Monique's office 1st thing in the morning to arrange follow-up. Tell them you are an ER follow-up. He may want to order a HIDA scan or other imaging studies as clinically indicated. Follow up with your primary care provider regarding your blood pressure and the trace amount of blood seen in your urine. Follow a low-fat diet for now until the cause of your abdominal pain is determined. You may want to try Mylanta or Maalox if you have discomfort after eating. You may also want to consider Prilosec OTC. Return to the emergency room if you have increased pain, fever, nausea, vomiting , or any other concerns. Referrals: Patient,NotPresent [Primary Care Provider] - As per Instructions
[2018-05-13] MEDS ORDERED: HYDROCOD/APAP 5/325 PREPACK#6 BTL TAKEHOME ONE (03:12)
[2018-05-13 03:17] VITALS: BP 160/80
== END 2018-05-13 03:30 | disposition home or self-care (01) ==
LOC: CED 23:52
DX: R10.84 Generalized abdominal pain (principal); K76.0 Fatty (change of) liver, not elsewhere classified; D72.829 Elevated white blood cell count, unspecified; E87.6 Hypokalemia; I10 Essential (primary) hypertension; K21.9 Gastro-esophageal reflux disease without esophagitis; Z85.020 Personal history of malignant carcinoid tumor of stomach; Z90.89 Acquired absence of other organs; Z88.0 Allergy status to penicillin
CPT/HCPCS: 74177; 76705; 96374; 99285; J1885; Q9967; 80053-ER; 83605-ER

== ENCOUNTER → 2018-07-23 | Outpatient (CLI) | payer OTHER, MEDICARE | LOC: BRMIMAGING 12:04 | PROVIDERS: ATTEND Family Medicine | DX: M25.562 Pain in left knee (principal) | CPT/HCPCS: 73562-PO ==